=== PATIENT | female | born 1985 | race Caucasian/White ===

== ENCOUNTER 2022-07-12 00:44 | Emergency (ER) | payer OTHER ==
[2022-07-12] MEDS ORDERED: HYDROmorphone 1 MG/ML 1 ML SYRINGE IM STA (01:16)
--- NOTE | 2022-07-12 01:50 | ED ---
General Adult HPI - General Source: EMS Mode of arrival: EMS Limitations: no limitations <Rogers Ann - Last Filed: 07/12/22 05:05> <Solomon Szymanski - Last Filed: 07/12/22 06:40> - General Chief complaint: Back Pain/Injury Stated complaint: Back Pain Time Seen by Provider: 07/12/22 01:08 - History of Present Illness Initial comments: Patient is a 36-year-old female with no significant past medical history presenting with chief complaint of back pain. Patient states that she woke up out of her sleep at about 2300 with severe pain in the lower back. Patient states it stretches from hip to hip across the lower back. Patient denies any previous injury or trauma. She denies any drug use. Denies alcohol consumption. I'm told patient urinated her pants but was unaware. She is complaining of numbness to the bilateral lower extremities. She is still able to move the extremities. She denies any abdominal pain, nausea, vomiting, chest pain, difficulty breathing, headache, fevers, chills, dysuria, hematuria. Denies loss of bowel control. (Rogers Ann) - Related Data Allergies Allergy/AdvReac Type Severity Reaction Status Date / Time No Known Allergies Allergy Verified 07/12/22 00:58 Review of Systems ROS Other: All systems not noted in ROS Statement are negative. <Rogers Ann - Last Filed: 07/12/22 05:05> ROS Other: All systems not noted in ROS Statement are negative. <Solomon Szymanski - Last Filed: 07/12/22 06:40> ROS Statement: Those systems with pertinent positive or pertinent negative responses have been documented in the HPI. Past Medical History History of Any Multi-Drug Resistant Organisms: None Reported Past Surgical History: Tonsillectomy, Tubal Ligation Past Psychological History: No Psychological Hx Reported Smoking Status: Current every day smoker Past Alcohol Use History: None Reported Past Drug Use History: Marijuana <Rogers Ann - Last Filed: 07/12/22 05:05> General Exam Limitations: no limitations General appearance: alert, in distress (Complaining of severe pain) Head exam: Present: atraumatic, normocephalic, normal inspection Eye exam: Present: normal appearance, PERRL, EOMI. Absent: scleral icterus, conjunctival injection, periorbital swelling Neck exam: Present: normal inspection, full ROM Respiratory exam: Present: normal lung sounds bilaterally. Absent: respiratory distress, wheezes, rales, rhonchi, stridor Cardiovascular Exam: Present: regular rate, normal rhythm, normal heart sounds. Absent: systolic murmur, diastolic murmur, rubs, gallop, clicks GI/Abdominal exam: Present: soft. Absent: distended, tenderness, guarding, rebound, rigid Rectal exam: Present: decreased rectal tone Back exam: Present: normal inspection, tenderness Neurological exam: Present: alert, oriented X3, CN II-XII intact Psychiatric exam: Present: normal affect, normal mood Skin exam: Present: warm, dry, intact, normal color. Absent: rash <Rogers Ann - Last Filed: 07/12/22 05:05> Course <Rogers Ann - Last Filed: 07/12/22 05:05> Vital Signs 07/12/22 07/12/22 07/12/22 00:54 01:05 02:00 Temperature 98.8 F Pulse Rate 78 82 Respiratory 16 18 Rate Blood Pressure 190/98 148/79 177/99 O2 Sat by Pulse 98 100 Oximetry 07/12/22 07/12/22 07/12/22 03:00 04:00 05:00 Temperature 98.4 F Pulse Rate 78 92 80 Respiratory 18 20 18 Rate Blood Pressure 188/98 190/95 178/88 O2 Sat by Pulse 100 98 95 Oximetry - Reevaluation(s) Reevaluation #1: Spoke with Dr. Luong who recommended transfer 07/12/22 03:56 (Rogers Ann) Reevaluation #2: I am awaiting return call from [facility] for transfer. My attending Dr. Szymanski is aware. Patient signed out to attending for completion of transfer 07/12/22 05:05 (Rogers Ann) Medical Decision Making - Lab Data Result diagrams: 07/12/22 01:49 07/12/22 01:49 <Rogers Ann - Last Filed: 07/12/22 05:05> - Lab Data Result diagrams: 07/12/22 01:49 07/12/22 01:49 <Solomon Szymanski - Last Filed: 07/12/22 06:40> - Medical Decision Making Was pt. sent in by a medical professional or institution (NASIMA Silva, AIR CONDITIONING MANAGER, urgent care, hospital, or long-term...) When possible be specific @ -[No] Did you speak to anyone other than the patient for history (EMS, parent, family, police, friend...)? What history was obtained from this source @ -EMS Did you review nursing and triage notes (agree or disagree)? Why? @ -[I reviewed and agree with nursing and triage notes] Were old charts reviewed (outside hosp., previous admission, EMS record, old EKG, old radiological studies, urgent care reports/EKG's, long-term records)? Report findings @ -[No old charts were reviewed] Differential Diagnosis (chest pain, altered mental status, abdominal pain women, abdominal pain men, vaginal bleeding, weakness, fever, dyspnea, syncope, headache, dizziness, GI bleed, back pain, seizure, CVA, palpatations, mental health)? @ - [facility] Differential Back Pain: Strain, zoster, cauda equina syndrome, epidural abscess, vertebral osteomyelitis, discitis, fracture, subluxation, disc herniation, DJD, spinal stenosis, pyelonephritis, kidney stone this is not meant to be an all- inclusive list. EKG interpreted by me (3pts min.). @ -[As above] X-rays interpreted by me (1pt min.). @ -[None done] CT interpreted by me (1pt min.). @ -no, radiologist report is reviewed. There is a moderate posterior central L5-S1 lumbar disc herniation with impingement on the spinal canal. Negative computed tomography scan of the cervical and thoracic spine. Normal unenhanced head CT. U/S interpreted by me (1pt. min.). @ -[None done] What testing was considered but not performed or refused? (CT, X-rays, U/S, la bs)? Why? @ -[None] What meds were considered but not given or refused? Why? @ -[None] Did you discuss the management of the patient with other professionals (professionals i.e. NASIMA Silva, AIR CONDITIONING MANAGER, lab, RT, psych nurse, web content & social media manager, group fitness manager, teacher, transit police officer, counseling case manager)? Give summary @ -Case discussed with orthopedist natural resources extension educator Dr. Luong Was smoking cessation discussed for >3mins.? @ -[No] Was critical care preformed (if so, how long)? @ -[No] Were there social determinants of health that impacted care today? How? (Homelessness, low income, unemployed, alcoholism, drug addiction, transportation, low edu. Level, literacy, decrease access to med. care, fci, rehab)? @ -[No] Was there de-escalation of care discussed even if they declined (Discuss DNR or withdrawal of care, Hospice)? DNR status @ -[No] What co-morbidities impacted this encounter? (DM, HTN, Smoking, COPD, CAD, Cancer, CVA, ARF, Chemo, Hep., AIDS, mental health diagnosis, sleep apnea, morbid obesity)? @ -[None] Was patient admitted / discharged? Hospital course, mention meds given and route, prescriptions, significant lab abnormalities, going to OR and other pertinent info. @ -Patient is a 36-year-old female presenting with chief complaint of lower back pain. Patient was awakened out of her sleep with severe lower back pain, no trauma or injury. She lost control of her bladder and on physical examination she has decreased rectal tone. CT shows moderate posterior central L5-S1 lumbar disc herniation with impingement on the spinal canal. I discussed these findings with orthopedist natural resources extension educator Dr. Luong who advised transfer. I have requested [facility] be paged, assistant county attorney informs me that their phone lines are down and we are awaiting return call. Patient is signed out to my attending Dr. Szymanski for completion of transfer. Undiagnosed new problem with uncertain prognosis? @ -[No] Drug Therapy requiring intensive monitoring for toxicity (Heparin, Nitro, Insulin, Cardizem)? @ -[No] Were any procedures done? @ -[No] Diagnosis/symptom? @ -Cauda equina Acute, or Chronic, or Acute on Chronic? @ -Acute Uncomplicated (without systemic symptoms) or Complicated (systemic symptoms)? @ -Complicated Side effects of treatment? @ -[No] Exacerbation, Progression, or Severe Exacerbation? @ -[No] Poses a threat to life or bodily function? How? (Chest pain, [place], [place], pneumonia, PE, COPD, DKA, ARF, appy, cholecystitis, CVA, Diverticulitis, Homicidal, Suicidal, threat to staff... and all critical care pts) @ -Yes (Rogers Ann) Patient was signed out to me pending transfer. Patient in brief has what appears to be atraumatic cauda equina syndrome. MRI was not performed but CT imaging does show central L5-S1 lumbar disc herniation with impingement on the spinal canal as well as having symptoms of low back pain, decreased rectal tone, urinary incontinence, urinary retention, saddle anesthesias, lower extremity weakness. [facility] The transfer center had to physically walk themselves down to the emergency department to connect us to the emergency department provider which did take over an hour. [facility] did call back, and accepted the transfer. Accepting physician is Dr. Lr. Patient is transferred in serious condition. She will require MRI. Patient was administered 10 mg of IV Decadron, additional IV Dilaudid for pain, and eagle catheter was placed as the patient is approximately 500 mL of urine in her bladder. Vital signs remained within acceptable limits. She'll be transferred via EMS in serious condition. (Solomon Szymanski) - Lab Data Lab Results 07/12/22 07/12/22 07/12/22 Range/Units 01:49 01:49 05:00 WBC 18.0 H (3.8-10.6) k/uL RBC 5.09 (3.80-5.40) m/uL Hgb 14.1 (11.4-16.0) gm/dL Hct 43.4 (34.0-46.0) % MCV 85.1 (80.0-100.0) fL MCH 27.7 (25.0-35.0) pg MCHC 32.6 (31.0-37.0) g/dL RDW 15.1 (11.5-15.5) % Plt Count 307 (150-450) k/uL MPV 7.9 Neutrophils % 73 % Lymphocytes % 21 % Monocytes % 3 % Eosinophils % 1 % Basophils % 1 % Neutrophils # 13.2 H (1.3-7.7) k/uL Lymphocytes # 3.8 (1.0-4.8) k/uL Monocytes # 0.6 (0-1.0) k/uL Eosinophils # 0.3 (0-0.7) k/uL Basophils # 0.1 (0-0.2) k/uL ESR 11 (0-20) mm/hr Sodium 137 (137-145) mmol/L Potassium 3.9 (3.5-5.1) mmol/L Chloride 106 (98-107) mmol/L Carbon Dioxide 24 (22-30) mmol/L Anion Gap 7 mmol/L BUN 21 H (7-17) mg/dL Creatinine 0.88 (0.52-1.04) mg/dL Est GFR (CKD-EPI)AfAm >90 (>60 ml/min/1.73 sqM) Est GFR (CKD-EPI)NonAf 85 (>60 ml/min/1.73 sqM) Glucose 214 H (74-99) mg/dL Calcium 9.0 (8.4-10.2) mg/dL Total Bilirubin 0.3 (0.2-1.3) mg/dL AST 20 (14-36) U/L ALT 19 (4-34) U/L Alkaline Phosphatase 88 (38-126) U/L C-Reactive Protein 0.7 (<1.0) mg/dL Total Protein 7.0 (6.3-8.2) g/dL Albumin 4.0 (3.5-5.0) g/dL Urine Color Colorless Urine Appearance Clear (Clear) Urine pH 6.0 (5.0-8.0) Ur Specific [place] 1.039 H (1.001-1.035) Urine Protein Negative (Negative) Urine Glucose (UA) 1+ H (Negative) Urine Ketones Negative (Negative) Urine Blood Trace H (Negative) Urine Nitrite Negative (Negative) Urine Bilirubin Negative (Negative) Urine Urobilinogen <2.0 (<2.0) mg/dL Ur Leukocyte Esterase Negative (Negative) Urine RBC 1 (0-5) /hpf Urine WBC 4 (0-5) /hpf Ur Squamous Epith Cells <1 (0-4) /hpf Urine HCG, Qual (Not Detectd) 07/12/22 Range/Units 05:00 WBC (3.8-10.6) k/uL RBC (3.80-5.40) m/uL Hgb (11.4-16.0) gm/dL Hct (34.0-46.0) % MCV (80.0-100.0) fL MCH (25.0-35.0) pg MCHC (31.0-37.0) g/dL RDW (11.5-15.5) % Plt Count (150-450) k/uL MPV Neutrophils % % Lymphocytes % % Monocytes % % Eosinophils % % Basophils % % Neutrophils # (1.3-7.7) k/uL Lymphocytes # (1.0-4.8) k/uL Monocytes # (0-1.0) k/uL Eosinophils # (0-0.7) k/uL Basophils # (0-0.2) k/uL ESR (0-20) mm/hr Sodium (137-145) mmol/L Potassium (3.5-5.1) mmol/L Chloride (98-107) mmol/L Carbon Dioxide (22-30) mmol/L Anion Gap mmol/L BUN (7-17) mg/dL Creatinine (0.52-1.04) mg/dL Est GFR (CKD-EPI)AfAm (>60 ml/min/1.73 sqM) Est GFR (CKD-EPI)NonAf (>60 ml/min/1.73 sqM) Glucose (74-99) mg/dL Calcium (8.4-10.2) mg/dL Total Bilirubin (0.2-1.3) mg/dL AST (14-36) U/L ALT (4-34) U/L Alkaline Phosphatase (38-126) U/L C-Reactive Protein (<1.0) mg/dL Total Protein (6.3-8.2) g/dL Albumin (3.5-5.0) g/dL Urine Color Urine Appearance (Clear) Urine pH (5.0-8.0) Ur Specific [place] (1.001-1.035) Urine Protein (Negative) Urine Glucose (UA) (Negative) Urine Ketones (Negative) Urine Blood (Negative) Urine Nitrite (Negative) Urine Bilirubin (Negative) Urine Urobilinogen (<2.0) mg/dL Ur Leukocyte Esterase (Negative) Urine RBC (0-5) /hpf Urine WBC (0-5) /hpf Ur Squamous Epith Cells (0-4) /hpf Urine HCG, Qual Not Detected (Not Detectd) Disposition Time of Disposition: 03:56 - Out of Hospital Transfer - Req. Specs Out of Hospital Transfer - Requested Specifics: Other Emergency Center <Rogers Ann - Last Filed: 07/12/22 05:05> <Solomon Szymanski - Last Filed: 07/12/22 06:40> Clinical Impression: Cauda equina syndrome, Disc herniation, Urinary retention Disposition: OTHER INSTITUTION NOT DEFINED Condition: Serious Referrals: None,Stated [Primary Care Provider] - 1-2 days
[2022-07-12 01:59] LABS: Basophils # (A) 0.1 k/uL (0-0.2); Basophils % (A) 1 %; Eosinophils # (A) 0.3 k/uL (0-0.7); Eosinophils % (A) 1 %; HCT 43.4 % (34.0-46.0); HGB 14.1 gm/dL (11.4-16.0); Lymphocytes # (A) 3.8 k/uL (1.0-4.8); Lymphocytes % (A) 21 %; MCH 27.7 pg (25.0-35.0); MCHC 32.6 g/dL (31.0-37.0); MCV 85.1 fL (80.0-100.0); Mean Platelet Volume 7.9; Monocytes # (A) 0.6 k/uL (0-1.0); Monocytes % (A) 3 %; Neutrophils # (A) 13.2 k/uL (1.3-7.7); Neutrophils % (A) 73 %; Platelet Count 307 k/uL (150-450); RBC 5.09 m/uL (3.80-5.40); RDW 15.1 % (11.5-15.5)
--- NOTE | 2022-07-12 02:19 | CT ---
EXAMINATION TYPE: CT brain wo con DATE OF EXAM: 07/12/2022 COMPARISON: None HISTORY: Left hip and lower back pain. Numbness in left leg. CT DLP: 1098.4 mGycm Automated exposure control for dose reduction was used. Images obtained of the brain without contrast. Ventricles and sulci appear normal. There is no mass effect or midline shift. No sign of intracranial hemorrhage. Calvarium is intact. No evidence of cerebral edema. IMPRESSION: Normal unenhanced head CT scan.
[2022-07-12 02:25] LABS: ALT 19 U/L (4-34); AST 20 U/L (14-36); African American GFR (CKD) >90 (>60 ml/min/1.73 sqM); Alkaline Phosphatase 88 U/L (38-126); Anion Gap 7 mmol/L; Blood Urea Nitrogen 21 mg/dL (7-17); C Reactive Protein 0.7 mg/dL (<1.0); Carbon Dioxide 24 mmol/L (22-30); Chloride 106 mmol/L (98-107); Glucose 214 mg/dL (74-99); Non-African American GFR(CKD) 85 (>60 ml/min/1.73 sqM); Potassium 3.9 mmol/L (3.5-5.1); Sodium 137 mmol/L (137-145); Total Bilirubin 0.3 mg/dL (0.2-1.3)
[2022-07-12 02:47] VITALS: RESP 18
[2022-07-12 03:00] LABS: Erythrocyte Sedimentation Rate 11 mm/hr (0-20)
--- NOTE | 2022-07-12 03:27 | CT ---
EXAMINATION TYPE: CT CervThorLumbar spine w con DATE OF EXAM: 07/12/2022 COMPARISON: HISTORY: Left hip and lower back pain. Numbness in left leg. CT DLP: 2776.8 mGycm Automated exposure control for dose reduction was used. CONTRAST: Performed with IV Contrast, patient injected with 100ML mL of Isovue 300. Images obtained from the level of the skull base to the S2 vertebra with no contrast. The cervical thoracic and lumbar vertebrae have normal spacing and alignment. Posterior elements are intact. No compression fracture. The skull base is intact. There is normal aeration of the mastoid si nuses. Posterior ribs appear intact. There is no thoracic paraspinal mass. Facet joints appear normal. No lumbar paraspinal mass. No evidence of lumbar spinal stenosis. Sacroil iac joints are intact. There is a moderate posterior central L5-S1 lumbar disc herniation. No evidenc e of thoracic spinal stenosis. IMPRESSION: There is a moderate posterior central L5-S1 lumbar disc herniation with impingement on the spinal can al. Negative CT scan of the cervical and thoracic spine.
[2022-07-12] MEDS ORDERED: HYDROmorphone 1 MG/ML 1 ML SYRINGE IVP STA ×2 (03:54→06:28)
[2022-07-12] MEDS ORDERED: DEXAMETHASONE SOD PHOSPHATE 10 MG/ML 1 ML VIAL IVP STA (05:06)
[2022-07-12] MEDS ORDERED: HYDROmorphone 1 MG/ML 1 ML SYRINGE IVP PRN (05:14)
[2022-07-12 05:23] LABS: Appearance,Urine Clear (Clear); Bilirubin,Urine Negative (Negative); Blood,Urine Trace (Negative); Color,Urine Colorless; Glucose,Urine (UA) 1+ (Negative); Ketones,Urine Negative (Negative); Leukocyte Esterase,Urine Negative (Negative); Nitrite,Urine Negative (Negative); Protein,Urine Negative (Negative); RBC,Urine 1 /hpf (0-5); Specific Gravity,Urine 1.039 (1.001-1.035); Squamous Epithelial Cell,Urine <1 /hpf (0-4); Urobilinogen,Urine <2.0 mg/dL (<2.0); WBC,Urine 4 /hpf (0-5)
[2022-07-12 05:46] VITALS: BP 178/88; PULSE 80; TEMP 98.4
== END 2022-07-12 06:31 | disposition other institution (70) ==
LOC: EC 00:44
DX: G83.4 Cauda equina syndrome (principal); M51.26 Other intervertebral disc displacement, lumbar region; F17.200 Nicotine dependence, unspecified, uncomplicated; F12.90 Cannabis use, unspecified, uncomplicated
CPT/HCPCS: 36415; 80053; 85652; 85025; 86140; 81001; 81025; 72129; 72126; 72132; 70450; 99285; 96374; 96375; 96376 ×2; 96372; J1100; J1170; Q9967

== ENCOUNTER 2022-09-05 14:07 | Emergency (ER) | payer OTHER ==
[2022-09-05] MEDS ORDERED: ONDANSETRON 4 MG/2 ML VIAL IVP STA (14:37)
[2022-09-05] MEDS ORDERED: SODIUM CHLORIDE 0.9% 1,000 ML IV ONE (14:37)
[2022-09-05] MEDS ORDERED: HYDROmorphone 1 MG/ML 1 ML SYRINGE IVP STA ×2 (14:37→18:49)
[2022-09-05] MEDS ORDERED: ACETAMINOPHEN TAB 325 MG TAB PO STA (14:38)
[2022-09-05] MEDS ORDERED: IBUPROFEN 600 MG TAB PO STA (14:38)
[2022-09-05 15:35] LABS: ALT 35 U/L (4-34); AST 33 U/L (14-36); African American GFR (CKD) >90 (>60 ml/min/1.73 sqM); Alkaline Phosphatase 285 U/L (38-126); Anion Gap 9 mmol/L; Blood Urea Nitrogen 12 mg/dL (7-17); Calcium 8.4 mg/dL (8.4-10.2); Carbon Dioxide 28 mmol/L (22-30); Chloride 91 mmol/L (98-107); Glucose 263 mg/dL (74-99); Non-African American GFR(CKD) >90 (>60 ml/min/1.73 sqM); Potassium 4.3 mmol/L (3.5-5.1); Sodium 128 mmol/L (137-145); Total Bilirubin 0.5 mg/dL (0.2-1.3)
[2022-09-05 15:45] LABS: Anisocytosis Slight; HCT 30.8 % (34.0-46.0); MCH 28.9 pg (25.0-35.0); MCHC 32.6 g/dL (31.0-37.0); MCV 88.7 fL (80.0-100.0); Mean Platelet Volume 8.2; Platelet Count 450 k/uL (150-450); RBC 3.48 m/uL (3.80-5.40); RDW 18.5 % (11.5-15.5); WBC 23.4 k/uL (3.8-10.6)
--- NOTE | 2022-09-05 15:49 | ED ---
General Adult HPI - General Chief complaint: Extremity Injury, Lower Stated complaint: rt leg wound Time Seen by Provider: 09/05/22 14:21 Source: patient, RN notes reviewed Mode of arrival: wheelchair Limitations: no limitations - History of Present Illness Initial comments: 36-year-old female with no significant past medical history presents to the emergency department the chief complaint of wound problem. Patient reports that she had an [id number] amputation performed at [facility] approximately around 07/19/2022. She was at her weekly wound care appointment at this facility where they noticed purulent discharge and redness to the site. The patient is complaining of increasing pain. Patient is reporting fever, chills. She has not taken anything for his symptoms. Patient is tearful during the history. Denies any chest pain, shortness of breath, dyspnea, cough. Denies any recent sick contacts. - Related Data Home Medications Medication Instructions Recorded Confirmed Acetaminophen [Tylenol] 975 mg PO Q8H 08/03/22 08/29/22 Docusate Sodium [Dok] 100 mg PO BID PRN 08/03/22 08/29/22 Rivaroxaban [Xarelto] 15 mg PO BID-W/MEALS 08/03/22 08/29/22 Sertraline [Zoloft] 50 mg PO DAILY 08/03/22 08/29/22 methocarbamoL [Methocarbamol] 750 mg PO QID 08/03/22 08/29/22 Previous Rx's Medication Instructions Recorded Atorvastatin [Lipitor] 80 mg PO DAILY 90 Days #90 tab 08/13/22 Gabapentin [Neurontin] 800 mg PO QID 15 Days #60 cap 08/13/22 Lidocaine 5% Patch [Lidoderm 5% 1 patch TOPICAL DAILY 15 Days #15 08/13/22 Patch] patch Morphine Sulfate ER [Ms Contin] 15 mg PO Q12HR 15 Days #30 tab 08/13/22 oxyCODONE-APAP 10-325MG [Percocet 1 each PO Q12HR PRN 30 Days #60 tab 08/29/22 10-325 mg] oxyCODONE-APAP 10-325MG [Percocet 1 tab PO Q12HR PRN 30 Days #60 tab 08/29/22 10-325 mg] Allergies Allergy/AdvReac Type Severity Reaction Status Date / Time No Known Allergies Allergy Verified 08/29/22 11:31 Review of Systems ROS Statement: Those systems with pertinent positive or pertinent negative responses have been documented in the HPI. ROS Other: All systems not noted in ROS Statement are negative. Past Medical History Past Medical History: Deep Vein Thrombosis (DVT) History of Any Multi-Drug Resistant Organisms: None Reported Past Surgical History: Tonsillectomy, Tubal Ligation Additional Past Surgical History / Comment(s): Right AKA Past Anesthesia/Blood Transfusion Reactions: No Reported Reaction Smoking Status: Current every day smoker - Past Family History Mother Family Medical History: No Reported History Father Additional Family Medical History / Comment(s): heart disease, Parkinson's disease. General Exam Limitations: no limitations General appearance: alert, in no apparent distress Head exam: Present: atraumatic, normocephalic, normal inspection Eye exam: Present: normal appearance, PERRL, EOMI. Absent: scleral icterus, conjunctival injection, periorbital swelling ENT exam: Present: normal exam, mucous membranes moist Neck exam: Present: normal inspection. Absent: tenderness, meningismus, lymphadenopathy Respiratory exam: Present: normal lung sounds bilaterally. Absent: respiratory distress, wheezes, rales, rhonchi, stridor Cardiovascular Exam: Present: regular rate, normal rhythm, normal heart sounds. Absent: systolic murmur, diastolic murmur, rubs, gallop, clicks GI/Abdominal exam: Present: soft, normal bowel sounds. Absent: distended, tenderness, guarding, rebound, rigid Extremities exam: Present: normal inspection, full ROM, normal capillary refill. Absent: tenderness, pedal edema, joint swelling, calf tenderness Right Hip exam: Present: normal inspection, full ROM. Absent: tenderness Upper Leg exam: Present: normal inspection, full ROM, laceration (AKA to R extremity, with erythema and purulent discharge to the site. ) Back exam: Present: normal inspection Neurological exam: Present: alert, oriented X3, CN II-XII intact Psychiatric exam: Present: normal affect, normal mood Skin exam: Present: warm, dry, intact, normal color. Absent: rash Course Vital Signs 09/05/22 09/05/22 09/05/22 14:09 15:31 16:19 Temperature 100.9 F H Pulse Rate 106 H 80 Respiratory 20 17 18 Rate Blood Pressure 116/55 87/46 103/54 O2 Sat by Pulse 94 L 90 L 99 Oximetry - Reevaluation(s) Reevaluation #1: 09/05/22 17:[address] Hoyos who agrees and accepts the patient for ER to ER transfer. EKG Findings - EKG Comments: EKG Findings:: I interpreted the following EKG performed at 15:42. Rate 79 bpm and normal sinus rhythm. ME interval 128, QRS duration 86, QT/QTc 392/427 Medical Decision Making - Medical Decision Making Was pt. sent in by a medical professional or institution (, NASIMA, TRANSITION SPECIALIST, urgent care, hospital, or care home...) When possible be specific @ -[No] Did you speak to anyone other than the patient for history (EMS, parent, family, police, friend...)? What history was obtained from this source @ -[No] Did you review nursing and triage notes (agree or disagree)? Why? @ -[I reviewed and agree with nursing and triage notes] Were old charts reviewed (outside hosp., previous admission, EMS record, old EKG, old radiological studies, urgent care reports/EKG's, care home records)? Report findings @ -[No old charts were reviewed] Differential Diagnosis (chest pain, altered mental status, abdominal pain women, abdominal pain men, vaginal bleeding, weakness, fever, dyspnea, syncope, headache, dizziness, GI bleed, back pain, seizure, CVA, palpatations, mental health, musculoskeletal)? @ -[not applicable] EKG interpreted by me (3pts min.). @ -[As above] X-rays interpreted by me (1pt min.). @ -[None done] CT interpreted by me (1pt min.). @ -[None done] U/S interpreted by me (1pt. min.). @ -[None done] What testing was considered but not performed or refused? (CT, X-rays, U/S, labs)? Why? @ -[None] What meds were considered but not given or refused? Why? @ -[None] Did you discuss the management of the patient with other professionals (professionals i.e. , NASIMA, TRANSITION SPECIALIST, lab, RT, psych nurse, aids social worker, global ceo, teacher, v/stol landing signal officer, case mgr)? Give summary @ -[No] Was smoking cessation discussed for >3mins.? @ -[No] Was critical care preformed (if so, how long)? @ -[No] Were there social determinants of health that impacted care today? How? (Homelessness, low income, unemployed, alcoholism, drug addiction, transportation, low edu. Level, literacy, decrease access to med. care, [facility], rehab)? @ -[No] Was there de-escalation of care discussed even if they declined (Discuss DNR or withdrawal of care, Hospice)? DNR status @ -[No] What co-morbidities impacted this encounter? (DM, HTN, Smoking, COPD, CAD, Cancer, CVA, ARF, Chemo, Hep., AIDS, mental health diagnosis, sleep apnea, morbid obesity)? @ -[None] Was patient admitted / discharged? Hospital course, mention meds given and route, prescriptions, significant lab abnormalities, going to OR and other pertinent info. @ -Transfer to [facility]. This is a 36-year-old female who presents to the emergency department with wound problem. Patient had a thorough history and physical exam which reveals an obese, febrile female who is in mild distress. Lungs clear to auscultation bilaterally abdomen is soft and nontender. There is a wrcnx-fzp-buar amputation to the right lower extremity with redness and tenderness at the incision site. Bandages had thick purulent discharge upon removal. Patient was given 2 L IV fluids, Tylenol, dilaudid, Zofran for pain management with mild symptomatic relief. Patient was started on IV vancomycin and Rocephin. Patient had lab work and imaging performed which revealed: X-ray of right femur reveals suspect soft tissue ulcers at the amputation stump osteomatitis at the mid femoral shaft of the knee along the subtle cortical lucency concerning for early osteomyelitis there is no soft tissue air or evidence of necrotizing fasciitis at this time Labs remarkable for WBCs 23.4, hemoglobin 10.0, BMP unremarkable, CRP 22.0, lactic acid 1.8 Blood cultures pending. ESR pending. The results in detail with the patient who verbalized understanding and all questions were addressed. Case was discussed with Dr. Hoyos, ED attending at [facility] who agrees and accepts the patient for ER to ER transfer. Pat ient will be transferred in stable condition. Case discussed with Dr. Cano, ECP who agrees with plan of care Undiagnosed new problem with uncertain prognosis? @ -[No] Drug Therapy requiring intensive monitoring for toxicity (Heparin, Nitro, I nsulin, Cardizem)? @ -[No] Were any procedures done? @ -[No] Diagnosis/symptom? @ -Wound problem -Sepsis - Hx of AKA Acute, or Chronic, or Acute on Chronic? @ -acute Uncomplicated (without systemic symptoms) or Complicated (systemic symptoms)? @ -complicated, fever Side effects of treatment? @ -[No] Exacerbation, Progression, or Severe Exacerbation? @ -[No] Poses a threat to life or bodily function? How? (Chest pain, USA, NC, pneumonia, PE, COPD, DKA, ARF, appy, cholecystitis, CVA, Diverticulitis, Homicidal, Suicidal, threat to staff... and all critical care pts) @ -high likelihood, including - Lab Data Result diagrams: 09/05/22 14:53 09/05/22 14:53 Lab Results 09/05/22 09/05/22 09/05/22 Range/Units 14:53 14:53 14:53 WBC 23.4 H (3.8-10.6) k/uL RBC 3.48 L (3.80-5.40) m/uL Hgb 10.0 L (11.4-16.0) gm/dL Hct 30.8 L (34.0-46.0) % MCV 88.7 (80.0-100.0) fL MCH 28.9 (25.0-35.0) pg MCHC 32.6 (31.0-37.0) g/dL RDW 18.5 H (11.5-15.5) % Plt Count 450 (150-450) k/uL MPV 8.2 Neutrophils % (Manual) 74 % Band Neuts % (Manual) 5 % Lymphocytes % (Manual) 17 % Monocytes % (Manual) 4 % Neutrophils # (Manual) 18.40 H (1.3-7.7) k/uL Lymphocytes # (Manual) 3.98 (1.0-4.8) k/uL Monocytes # (Manual) 0.94 (0-1.0) k/uL Nucleated RBCs 0 (0-0) /100 WBC Manual Slide Review Performed RBC Morphology Normal Anisocytosis Slight Sodium 128 L (137-145) mmol/L Potassium 4.3 (3.5-5.1) mmol/L Chloride 91 L (98-107) mmol/L Carbon Dioxide 28 (22-30) mmol/L Anion Gap 9 mmol/L BUN 12 (7-17) mg/dL Creatinine 0.65 (0.52-1.04) mg/dL Est GFR (CKD-EPI)AfAm >90 (>60 ml/min/1.73 sqM) Est GFR (CKD-EPI)NonAf >90 (>60 ml/min/1.73 sqM) Glucose 263 H (74-99) mg/dL Plasma Lactic Acid Charly 1.8 (0.7-2.0) mmol/L Calcium 8.4 (8.4-10.2) mg/dL Total Bilirubin 0.5 (0.2-1.3) mg/dL AST 33 (14-36) U/L ALT 35 H (4-34) U/L Alkaline Phosphatase 285 H (38-126) U/L C-Reactive Protein 22.0 H (<1.0) mg/dL Total Protein 6.0 L (6.3-8.2) g/dL Albumin 3.0 L (3.5-5.0) g/dL Disposition Clinical Impression: Sepsis, AKA stump complication Disposition: HOME SELF-CARE Condition: Fair Is patient prescribed a controlled substance at d/c from ED?: No Referrals: Tio Peters MD [Primary Care Provider] - 1-2 days Time of Disposition: 17:03 - Out of Hospital Transfer - Req. Specs Out of Hospital Transfer - Requested Specifics: Other Emergency Center ([facility])
[2022-09-05] MEDS ORDERED: VANCOMYCIN 1,000 MG in SODIUM CHLORIDE 0.9% 250 ML IVPB STA (16:16)
--- NOTE | 2022-09-05 16:19 | XR ---
EXAMINATION TYPE: XR femur RT DATE OF EXAM: 09/05/2022 COMPARISON: NONE HISTORY: 36-year-old female rule out necrotizing fasciitis. Pain and infection at amputation site. Am putation performed last month. TECHNIQUE: 2 views FINDINGS: There is mild degenerative change of the right hip. 4 skin dick are present at the level of the hip. There is a mid femoral shaft amputation noted. The soft tissue stump appears irregular possibly refle cting ulceration. There is periostitis at the osteotomy and cerebral cortical osteolysis both at the osteotomy margin and along the lateral cortex. No obvious dissecting soft tissue air is seen. IMPRESSION: 1. Suspect soft tissue ulcers at the amputation stump. 2. Periostitis at the mid femoral shaft osteotomy along with subtle cortical lucency concerning for e katie osteomyelitis. 3. Otherwise, no soft tissue air to clearly indicate a radiographic diagnosis of necrotizing fasciiti s.
[2022-09-05] MEDS ORDERED: VANCOMYCIN IV PER PHARMACY 1 EACH MISC MISCELLANE PRN (16:21)
[2022-09-05 16:24] LABS: Band Neutrophils % 5 %; Lymphocytes # (M) 3.98 k/uL (1.0-4.8); Monocytes # (M) 0.94 k/uL (0-1.0); Neutrophils % (M) 74 %; Nucleated Red Blood Cells 0 /100 WBC (0-0); RBC Morphology Normal; Total Cells Counted 100
[2022-09-05] MEDS ORDERED: VANCOMYCIN 1,500 MG in SODIUM CHLORIDE 0.9% 500 ML 500 ML IVPB ONE (16:30)
[2022-09-05 17:23] VITALS: RESP 19; TEMP 98
[2022-09-05 18:46] VITALS: BP 104/52; PULSE 77
== END 2022-09-05 19:14 | disposition home or self-care (01) ==
LOC: EC 14:07
DX: A41.9 Sepsis, unspecified organism (principal); F17.200 Nicotine dependence, unspecified, uncomplicated; Z89.611 Acquired absence of right leg above knee
CPT/HCPCS: 36415; 80053; 85652; 83605; 85025; 86140; 87040; 73552; 99284; 96365; 96367; 96366; 96376; 96375 ×2; 96361; J3370; J2405; J0696; J1170

== ENCOUNTER → 2022-10-24 | Outpatient (CLI) | payer OTHER ==
--- NOTE | 2022-10-24 14:37 | P.PAINPG ---
PQRS Measure Charge Sheet Comment: A wheelchair bound R NAKITA 36 yr old female w mother at side with a history of severe and chronic LBP secondary to lumbar DDD and spondylosis with facet arthropathy without myelopathy presents today for medication refills. Pain level is provoked at 5/10 in intensity, constant, localized in the lower lumbar s pine, stabbing in character w shooting towards the hips and R AKA. Pain is provoked by weight bearing activity. Pain is alleviated with medications, Lidoderm patches which are ineffective, injections, chiropractic treatments semiweekly until May 2022, use of a wheelchair family 20 assistance, use a heating pad, repositioning and rest. Interventional pain procedures completed include LESI Patient is currently on Percocet 10/325mg #60 Patient denies any side effects of the medication(s), denies excessive drowsiness or sleepiness, denies suicidal ideation and reports that the current pain medication is helping to control the pain and improve activities of daily living. Patient denies any motor or sensory deficits. Patient denies any fever or night sweats, denies any change in the bowel movements or urination. Physical Examination: -Constitutional: Cooperative. Not in acute distress . - Neurologic: Cranial nerve II to XII intact. No focal neurological deficits. - Psychatric: Alert & oriented x 3. Matching mood & appropriate affect. Judgment and insight intact. - Musculoskeletal: Cervical spine: Muscle bulk/ tone/ strength in the bilateral upper extremities normal Vertebral body tenderness to palpation over Spurling test positive Distraction test positive Facet loading test positive TTP Thoracic spine Muscle bulk / tone/ strength in the bilateral paraspinal muscles normal Vertebral body tender to palpation over Facet loading test positive TTP Lumbar spine: Motor bulk/ tone/ strength lower extremities , thigh and legs : 5/5 Deep tendon reflexes : Normal Knee Jerk. Normal Ankle Jerk . Vertebral body tenderness to palpation over L5 Lumbar Facet Loading Test positive Straight Leg Raise: positive at 30 degrees right side> left side Gaenslen's Test positive Sacral spine : Severe tenderness over the Sacroiliac joint: right side / left side Range of motion: Flexion of the lumbar spine <60 degrees Range of motion: Extension of the lumbar spine <20 degrees Gaenslen's Test positive right side / left side Thomas test: positive right side / left side Thigh Thrust Test positive right side / left side Sacral Thrust Test positive right side / left side Assessment and plan: Chronic LBP secondary to lumbar DDD, spondylosis with facet arthropathy without myelopathy Chronic and current use of high-risk medication (Opioids). The patient was counseled about risk of opioid use, psychological risk associated with opioids and was orally counseled to not overuse , divert or sell medications. Pt is to store medication in a safe location. The patient is counseled against driving while using narcotic medications and also not to use alcohol or any illicit recreational drugs. Patient verbalized understanding that the lack of compliance will result in failure to renew narcotic prescription(s) as well as possible discharge from the clinic Diagnoses, prognosis and treatment options including but not limited to physical therapy, surgical interventions, interventional therapies and medication management including narcotics and adjuvant medication were discussed. All patient questions answered MAPS reviewed and it was appropriate. Prescription refill for Percocet 10/325mg #60 w 1 RF. I have spent less than 30 minutes on patient care today. Dr Melgar was available by phone for the evaluation of this patient. The time was used to review the medical records including relevant urine studies and Prescription history (MAPs), review of the available imaging, evaluation and examination of the patient, coordination of care with the medical staff and if applicable referring physicians, as well as creation of the medical record Home Medications: Ambulatory Orders Acetaminophen [Tylenol] 975 mg PO Q8H 08/03/22 Docusate Sodium [Dok] 100 mg PO BID PRN 08/03/22 Rivaroxaban [Xarelto] 15 mg PO BID-W/MEALS 08/03/22 Sertraline [Zoloft] 50 mg PO DAILY 08/03/22 methocarbamoL [Methocarbamol] 750 mg PO QID 08/03/22 Atorvastatin [Lipitor] 80 mg PO DAILY 90 Days #90 tab 08/13/22 Gabapentin [Neurontin] 800 mg PO QID 15 Days #60 cap 08/13/22 Lidocaine 5% Patch [Lidoderm 5% Patch] 1 patch TOPICAL DAILY 15 Days #15 patch 08/13/22 Morphine Sulfate ER [Ms Contin] 15 mg PO Q12HR 15 Days #30 tab 08/13/22 oxyCODONE-APAP 10-325MG [Percocet 10-325 mg] 1 each PO Q12HR PRN 30 Days #60 tab 10/24/22 oxyCODONE-APAP 10-325MG [Percocet 10-325 mg] 1 tab PO Q12HR PRN 30 Days #60 tab 10/24/22 Controlled Substance Measures - Controlled Substance Measures Is patient prescribed a controlled substance at discharge?: Yes When asked, does pt state using other controlled substances?: Yes If prescribed controlled substance>3 days was MAPS reviewed?: Yes
[2022-10-24 15:05] VITALS: BP 116/81; PULSE 84; RESP 18; TEMP 98.1
== END ==
LOC: PNWHC3 13:19
PROVIDERS: ATTEND Specialist
DX: M51.36 Other intervertebral disc degeneration, lumbar region (principal); M47.816 Spondylosis without myelopathy or radiculopathy, lumbar region; G89.29 Other chronic pain; Z79.891 Long term (current) use of opiate analgesic
CPT/HCPCS: 99211

== ENCOUNTER 2022-11-01 12:47 | Day surgery (SDC) | payer OTHER ==
[2022-10-30 17:53] VITALS: BMI 43.0
[2022-11-01 13:34] VITALS: RESP 16; TEMP 96.6
[2022-11-01] MEDS ORDERED: LACTATED RINGERS 1,000 ML IV ONE (13:38)
[2022-11-01] MEDS ORDERED: MIDAZOLAM 2 MG/2 ML VIAL IVP ONE (13:41)
[2022-11-01 13:42] LABS: Glucose,Whole Blood 145 mg/dL (70-110)
[2022-11-01] MEDS ORDERED: IOPAMIDOL M200 10 ML VIAL ONE (13:50)
[2022-11-01] MEDS ORDERED: methylPREDNISolone ACETATE 40 MG/ML 1 ML VIAL ONE (13:50)
[2022-11-01] MEDS ORDERED: fentaNYL (PF) 50 MCG/ML 2 ML AMP ONE (13:50)
[2022-11-01] MEDS ORDERED: LACTATED RINGERS 1,000 ML IV SCH (14:00)
--- NOTE | 2022-11-01 14:04 | P.PCN ---
Date of Procedure: 11/01/22 Description of Procedure: Procedure: 1. L5-S1 Epidural steroid injection under fluoroscopic guidance 2. Lumbar epidurogram PREOPERATIVE DIAGNOSIS: Lumbar degenerative disc disease, and Lumbar radiculopathy. POSTOPERATIVE DIAGNOSIS: Lumbar degenerative disc disease, and Lumbar radi culopathy. SURGEON: Cristopher Lemus ANESTHESIA: Local with 1% lidocaine, and IV sedation: Fentanyl 100 g. Sedation supervision start time: 1355 Sedation supervision ended time 1401 EBL: None. Specimen removed: None Fluoroscopic image: saved to electronic medical records PROCEDURE INDICATION: The patient had history of Lumbar degenerative disc disease and Lumbar radiculopathy. Failed to conservative therapy. Presented for epidural steroid injection. PROCEDURE DESCRIPTION: The patient was seen and identified in the preoperative area. Risks, benefits, complications, and alternatives were discussed with the patient. The patient agreed to proceed with the procedure and signed the consent. IV was started, and vital signs were stable. Patient was taken to the procedure area, and time out was completed. The patient was placed in the prone position on procedure table and a pillow was placed under the abdomen to reduce lumbar lordosis. The lumbosacral area was prepped and draped in the usual sterile fashion. Critical pause was taken. Vital signs were closely monitored during the procedure. Using anterior-posterior fluoroscopy, the L5-S1 interlaminar space was identified, and skin and deeper tissues were localized with 1% lidocaine. Using anterior-posterior fluoroscopy, lateral fluoroscopy, and [id number] technique, a 20 gauge 3.5 Tuohy epidural needle entered the epidural space. After negative aspiration of CSF and blood with no paresthesias, 2 ml of [id number] contrast dye was injected and an excellent epidurogram was seen. Again after negative aspiration of CSF and blood with no paresthesias, 8 mL of block solution was injected into the epidural space. Block solution contained 40 mg of Depo-Medrol, and 7 mL of preservative-free normal saline. Needle was withdrawn intact, skin was cleansed, and bandages were applied. COMPLICATIONS: None. DISPOSITION / PLANS: The patient was placed in a supine position and transferred to the recovery area in a stable condition for observation. Patient was discharged from the recovery room after meeting discharge criteria. Home discharge instructions given to the patient by the staff. The patient was reexamined prior to discharge. The patient will schedule a follow up in the clinic in 4 weeks.
[2022-11-01] MEDS ORDERED: IV FLUID CONTINUATION 1,000 ML IV ONE (14:08)
[2022-11-01 14:21] LABS: Glucose,Whole Blood 118 mg/dL (70-110)
[2022-11-01 14:38] VITALS: BP 122/85; PULSE 96
--- NOTE | 2022-11-01 15:58 | FL ---
EXAMINATION TYPE: FL guided pain mgmt statistic DATE OF EXAM: 11/01/2022 CLINICAL HISTORY: Low back pain. TECHNIQUE: Fluoroscopy. COMPARISON: None. FINDINGS: Fluoroscopic guidance was provided during pain relief procedure performed by Dr. Lemus . A total of 3.9 seconds of fluoroscopic time was utilized during the procedure and two spot images a re acquired. Images acquired shows needle localization at L5 level. IMPRESSION: As Above. TOTAL DAP = 0.0180 mGy x m2
== END 2022-11-01 14:46 | disposition home or self-care (01) ==
LOC: ORPAIN 12:47
DX: M51.16 Intervertebral disc disorders with radiculopathy, lumbar region (principal); I10 Essential (primary) hypertension; M19.90 Unspecified osteoarthritis, unspecified site; G47.33 Obstructive sleep apnea (adult) (pediatric); Z79.82 Long term (current) use of aspirin; Z90.89 Acquired absence of other organs; Z79.899 Other long term (current) drug therapy; Z79.01 Long term (current) use of anticoagulants
CPT/HCPCS: 81025; 62323; J2250; J1030; J3010; Q9966

== ENCOUNTER → 2022-11-28 | Outpatient (CLI) | payer OTHER ==
[2022-11-28 14:55] VITALS: BP 120/78; PULSE 86; RESP 18; TEMP 98.8
--- NOTE | 2022-11-28 15:48 | P.PAINPG ---
PQRS Measure Charge Sheet Comment: A 36 yr old R AKA wheelchair bound female w mother at side with a history of severe and chronic LBP secondary to lumbar DDD and spondylosis with facet arthropathy without myelopathy presents today for evaluation s/p JESSICA L5-S1. Pt states she experienced 100 % pain relief x 4 wks s/p procedure. Pain level is provoked at 0 /10 in intensity. Pain has no provocative factors. Pain is alleviated with injections. Interventional pain procedures completed include JESSICA L5-S1 Patient is currently on DENIES Patient denies any side effects of the medication(s), denies excessive drowsiness or sleepiness, denies suicidal ideation and reports that the current pain medication is helping to control the pain and improve activities of daily living. Patient denies any motor or sensory deficits. Patient denies any fever or night sweats, denies any change in the bowel movements or urination. Physical Examination: -Constitutional: Cooperative. Not in acute distress . - Neurologic: Cranial nerve II to XII intact. No focal neurological deficits. - Psychatric: Alert & oriented x 3. Matching mood & appropriate affect. Judgment and insight intact. - Musculoskeletal: Cervical spine: Muscle bulk/ tone/ strength in the bilateral upper extremities normal Vertebral body tenderness to palpation over Spurling test positive Distraction test positive Facet loading test positive TTP Thoracic spine Muscle bulk / tone/ strength in the bilateral paraspinal muscles normal Vertebral body tender to palpation over Facet loading test positive TTP Lumbar spine: Motor bulk/ tone/ strength lower extremities , thigh and legs : 5/5 Deep tendon reflexes : Normal Knee Jerk. Normal Ankle Jerk . Vertebral body tenderness to palpation over Moore Test positive Lumbar Facet Loading Test positive Straight Leg Raise: positive at 30 degrees right side/ left side Gaenslen's Test positive Sacral spine : Severe tenderness over the Sacroiliac joint: right side / left side Range of motion: Flexion of the lumbar spine <60 degrees Range of motion: Extension of the lumbar spine <20 degrees Gaenslen's Test positive right side / left side Thomas test: positive right side / left side Thigh Thrust Test positive right side / left side Sacral Thrust Test positive right side / left side Assessment and plan: Chronic LBP secondary to lumbar DDD, spondylosis with facet arthropathy without myelopathy May return to clinic on an as needed basis. All questions answered. I have spent less than 30 minutes on patient care today. Dr Melgar was available by phone for the evaluation of this patient. The time was used to review the medical records including relevant urine studies and Prescription history (MAPs), review of the available imaging, evaluation and examination of the patient, coordination of care with the medical staff and if applicable referring physicians, as well as creation of the medical record Home Medications: Ambulatory Orders Rivaroxaban [Xarelto] 15 mg PO BID-W/MEALS 08/03/22 Sertraline [Zoloft] 100 mg PO BID 08/03/22 methocarbamoL [Methocarbamol] 750 mg PO QID PRN 08/03/22 Atorvastatin [Lipitor] 80 mg PO DAILY 90 Days #90 tab 08/13/22 Amoxic-Pot Clav 875-125Mg [Augmentin 875-125] 1 tab PO Q8H 10/30/22 Famotidine 20 mg PO DAILY 10/30/22 Gabapentin [Neurontin] 800 mg PO QID PRN 10/30/22 Spironolactone 50 mg PO BID 10/30/22 oxyCODONE-APAP 10-325MG [Percocet 10-325 mg] 1 each PO Q6HR PRN 10/30/22 Controlled Substance Measures - Controlled Substance Measures Is patient prescribed a controlled substance at discharge?: No
== END ==
LOC: PNWHC3 13:45
PROVIDERS: ATTEND Specialist
DX: M51.37 Other intervertebral disc degeneration, lumbosacral region (principal); G89.29 Other chronic pain; M47.817 Spondylosis without myelopathy or radiculopathy, lumbosacral region
CPT/HCPCS: 99211

== ENCOUNTER 2022-12-01 16:35 | Emergency (ER) | payer OTHER ==
[2022-12-01] MEDS ORDERED: HYDROmorphone 1 MG/ML 1 ML SYRINGE IVP STA ×3 (16:54→20:43)
--- NOTE | 2022-12-01 17:02 | ED ---
Extremity Problem HPI - General Chief complaint: Extremity Injury, Lower Stated complaint: Leg swelling Time Seen by Provider: 12/01/22 16:39 Source: patient, family, EMS, RN notes reviewed Mode of arrival: EMS Limitations: no limitations - History of Present Illness Initial comments: This is a 37 year old female who presents to the emergency department for left leg pain and swelling. Reports both pain and numbness that started 2-3 days ago. The pain and numbness start in the calf and go down the leg. 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 This was done at [facility]. She had multiple complications following this procedure and is terrified of losing the left leg as well. She takes Robaxin, Neurontin, and Percocet for pain, however this has not been effectively managing this pain. She is still on a blood thinner. Denies any chest pain or shortness of breath. Denies any fevers, chills, sore throat, cough, dyspnea, chest pain, palpitations, abdominal pain, nausea, vomiting, diarrhea, back pain, or headaches. MD Complaint: extremity pain, extremity swelling Onset/Timin -: days(s) Location: left, lower extremity - Related Data Home Medications Medication Instructions Recorded Confirmed Rivaroxaban [Xarelto] 15 mg PO BID-W/MEALS 08/03/22 10/30/22 Sertraline [Zoloft] 100 mg PO BID 08/03/22 10/30/22 methocarbamoL [Methocarbamol] 750 mg PO QID PRN 08/03/22 10/30/22 Amoxic-Pot Clav 875-125Mg 1 tab PO Q8H 10/30/22 10/30/22 [Augmentin 875-125] Famotidine 20 mg PO DAILY 10/30/22 10/30/22 Gabapentin [Neurontin] 800 mg PO QID PRN 10/30/22 10/30/22 Spironolactone 50 mg PO BID 10/30/22 10/30/22 oxyCODONE-APAP 10-325MG [Percocet 1 each PO Q6HR PRN 10/30/22 10/30/22 10-325 mg] Previous Rx's Medication Instructions Recorded Atorvastatin [Lipitor] 80 mg PO DAILY 90 Days #90 tab 08/13/22 Allergies Allergy/AdvReac Type Severity Reaction Status Date / Time No Known Allergies Allergy Verified 12/01/22 16:55 Review of Systems ROS Statement: Those systems with pertinent positive or pertinent negative responses have been documented in the HPI. ROS Other: All systems not noted in ROS Statement are negative. Past Medical History Past Medical History: Deep Vein Thrombosis (DVT) History of Any Multi-Drug Resistant Organisms: None Reported Past Surgical History: Tonsillectomy, Tubal Ligation Additional Past Surgical History / Comment(s): Right AKA Past Anesthesia/Blood Transfusion Reactions: No Reported Reaction Past Psychological History: No Psychological Hx Reported Smoking Status: Current every day smoker, Former smoker Past Alcohol Use History: None Reported Past Drug Use History: None Reported - Past Family History Mother Family Medical History: No Reported History Father Additional Family Medical History / Comment(s): heart disease, Parkinson's disease. General Exam Limitations: no limitations General appearance: alert, anxious, in distress Head exam: Present: atraumatic, normocephalic, normal inspection Respiratory exam: Present: normal lung sounds bilaterally. Absent: respiratory distress, wheezes, rales, rhonchi, stridor Cardiovascular Exam: Present: regular rate, normal rhythm, normal heart sounds. Absent: systolic murmur, diastolic murmur, rubs, gallop, clicks Extremities exam: Present: other (No erythema, swelling, or increased heat to the left lower extremity. Calf tenderness. 2+ DP and PT pulses. Capillary ref ill less than 1 second. Full active and passive range of motion.) Neurological exam: Present: alert, oriented X3, CN II-XII intact Psychiatric exam: Present: normal affect, normal mood Skin exam: Present: warm, dry, intact, normal color. Absent: rash Course Vital Signs 12/01/22 12/01/22 12/01/22 16:52 17:00 18:00 Temperature Pulse Rate 91 91 Respiratory 18 20 Rate Blood Pressure 129/64 107/75 O2 Sat by Pulse 97 98 97 Oximetry 12/01/22 12/01/22 12/01/22 19:00 20:00 21:00 Temperature Pulse Rate 85 78 Respiratory 18 20 Rate Blood Pressure 110/64 75/54 111/69 O2 Sat by Pulse 97 99 92 L Oximetry 12/01/22 21:07 Temperature 98.6 F Pulse Rate Respiratory Rate Blood Pressure O2 Sat by Pulse Oximetry Medical Decision Making - Medical Decision Making This is a 37-year-old female who presents to the emergency department for left leg pain and swelling. Was pt. sent in by a medical professional or institution? @ -No Did you speak to anyone other than the patient for history? @ -No Did you review nursing and triage notes? @ -Yes, and I agree, it is accurate with regards to the patient's symptoms. Were old charts reviewed? @ -No Differential Diagnosis? @ -Differential Leg Pain: Leg fracture, leg sprain, DVT, PVD, arterial insufficiency, iliac artery aneurysm, cellulitis, compartment syndrome, tendinopathy, nerve entrapment, piriformis syndrome, osteoarthritis, rhabdomyolysis, myositis, cramping from an electrolyte imbalance, this is not meant to be an all inclusive list. EKG interpreted by me (3pts min.)? @ -Not obtained X-rays interpreted by me (1pt min.)? @ -X-ray of the left foot and tib-fib obtained. My interpretation identifies no acute fractures or subcutaneous gas formation. CT interpreted by me (1pt min.)? @ -Computed tomography scan of the left lower extremity obtained. My interpretation identifies no acute fractures or soft tissue swelling. U/S interpreted by me (1pt. min.)? @ -Duplex ultrasound of the left lower extremity obtained. My interpretation identifies no evidence of a DVT. What testing was considered but not performed? (CT, X-rays, U/S, labs)? Why? @ -None What meds were considered but not given? Why? @ -None Did you discuss the management of the patient with other professionals? @ -No Did you reconcile home meds? @ -No Was smoking cessation discussed for >3mins.? @ -No Was critical care preformed (if so, how long)? @ -No Were there social determinants of health that impacted care today? How? (Homelessness, low income, unemployed, alcoholism, drug addiction, transportation, low edu. Level, literacy, decrease access to med. care, usp, rehab)? @ -No Was there de-escalation of care discussed even if they declined? (Discuss DNR or withdrawal of care, Hospice)? @ -No What co-morbidities impacted this encounter? (DM, HTN, Smoking, COPD, CAD, Cancer, CVA, Hep., AIDS, mental health diagnosis, sleep apnea, morbid obesity)? @ -Hx of DVT, morbid obesity Was patient admitted / discharged? @ -Discharged. Lab work obtained revealing minor leukocytosis and no other actionable findings. Duplex ultrasound of the left lower extremity obtained revealing no evidence of a DVT. X-ray of the left foot and tib-fib obtained as well, also revealing no acute process. It took 2mg of Dilauded and Toradol to adequately controlled the patient's pain. Discussed with the patient that we do not have a clear cause for her symptoms at this time. Given the patient's level of concern and prior right AKA, I am agreeable to additional workup with the patient. We had discussed speaking with Dr. Peters, however he was not on- call at the time of the patient's visit. We subsequently decided to proceed with a computed tomography scan of the left lower extremity for further evaluation and if that was negative, she felt fairly comfortable with discharge home and following up with Dr. Peters on an outpatient basis. CT scan of the left lower extremity obtained, also revealing no acute findings. I did offer to speak with the provider covering for Dr. Peters to see if he would be agreeable to admission. However, the patient declined and states that she is comfortable with discharge home at this point. She was given very strict return parameters, in that if she has increasing pain or notices any changes in color or temperature, she should return to the emergency department. Undiagnosed new problem with uncertain prognosis? @ -None Drug Therapy requiring intensive monitoring for toxicity (Heparin, Nitro, Insulin, Cardizem)? @ -None Were any procedures done? @ -None Diagnosis/symptom? @ -Left leg pain Acute, or Chronic, or Acute on Chronic? @ -Acute Uncomplicated (without systemic symptoms) or Complicated (systemic symptoms)? @ -Uncomplicated Side effects of treatment? @ -None Exacerbation, Progression, or Severe Exacerbation] @ -Not applicable Poses a threat to life or bodily function? @ -Not at this time. Return precautions reviewed in depth, the patient is instructed to return to the emergency department with any new, worsening, or concerning symptoms. Patient verbalized understanding. This case was discussed in detail with the attending ED physician, Dr. Cano. Presentation, findings, and treatment plan discussed in detail as well. - Lab Data Result diagrams: 12/01/22 17:07 12/01/22 17:07 Lab Results 12/01/22 12/01/22 12/01/22 Range/Units 17:07 17:07 17:07 WBC 12.7 H (3.8-10.6) k/uL RBC 4.91 (3.80-5.40) m/uL Hgb 14.3 (11.4-16.0) gm/dL Hct 44.7 (34.0-46.0) % MCV 91.1 (80.0-100.0) fL MCH 29.0 (25.0-35.0) pg MCHC 31.9 (31.0-37.0) g/dL RDW 15.4 (11.5-15.5) % Plt Count 434 (150-450) k/uL MPV 8.5 Neutrophils % 68 % Lymphocytes % 24 % Monocytes % 4 % Eosinophils % 3 % Basophils % 0 % Neutrophils # 8.6 H (1.3-7.7) k/uL Lymphocytes # 3.0 (1.0-4.8) k/uL Monocytes # 0.5 (0-1.0) k/uL Eosinophils # 0.3 (0-0.7) k/uL Basophils # 0.0 (0-0.2) k/uL PT (9.0-12.0) sec INR (<1.2) APTT (22.0-30.0) sec Sodium 139 (137-145) mmol/L Potassium 4.7 (3.5-5.1) mmol/L Chloride 104 (98-107) mmol/L Carbon Dioxide 25 (22-30) mmol/L Anion Gap 10 mmol/L BUN 18 H (7-17) mg/dL Creatinine 0.55 (0.52-1.04) mg/dL Est GFR (CKD-EPI)AfAm >90 (>60 ml/min/1.73 sqM) Est GFR (CKD-EPI)NonAf >90 (>60 ml/min/1.73 sqM) Glucose 174 H (74-99) mg/dL Plasma Lactic Acid Charly 1.5 (0.7-2.0) mmol/L Calcium 9.4 (8.4-10.2) mg/dL Magnesium 2.1 (1.6-2.3) mg/dL Total Bilirubin 0.5 (0.2-1.3) mg/dL AST 33 (14-36) U/L ALT 36 H (4-34) U/L Alkaline Phosphatase 114 (38-126) U/L Creatine Kinase <20 L (30-135) U/L C-Reactive Protein 0.7 (<1.0) mg/dL Total Protein 6.8 (6.3-8.2) g/dL Albumin 3.9 (3.5-5.0) g/dL 12/01/22 Range/Units 17:07 WBC (3.8-10.6) k/uL RBC (3.80-5.40) m/uL Hgb (11.4-16.0) gm/dL Hct (34.0-46.0) % MCV (80.0-100.0) fL MCH (25.0-35.0) pg MCHC (31.0-37.0) g/dL RDW (11.5-15.5) % Plt Count (150-450) k/uL MPV Neutrophils % % Lymphocytes % % Monocytes % % Eosinophils % % Basophils % % Neutrophils # (1.3-7.7) k/uL Lymphocytes # (1.0-4.8) k/uL Monocytes # (0-1.0) k/uL Eosinophils # (0-0.7) k/uL Basophils # (0-0.2) k/uL PT 11.4 (9.0-12.0) sec INR 1.1 (<1.2) APTT 30.4 H (22.0-30.0) sec Sodium (137-145) mmol/L Potassium (3.5-5.1) mmol/L Chloride (98-107) mmol/L Carbon Dioxide (22-30) mmol/L Anion Gap mmol/L BUN (7-17) mg/dL Creatinine (0.52-1.04) mg/dL Est GFR (CKD-EPI)AfAm (>60 ml/min/1.73 sqM) Est GFR (CKD-EPI)NonAf (>60 ml/min/1.73 sqM) Glucose (74-99) mg/dL Plasma Lactic Acid Charly (0.7-2.0) mmol/L Calcium (8.4-10.2) mg/dL Magnesium (1.6-2.3) mg/dL Total Bilirubin (0.2-1.3) mg/dL AST (14-36) U/L ALT (4-34) U/L Alkaline Phosphatase (38-126) U/L Creatine Kinase (30-135) U/L C-Reactive Protein (<1.0) mg/dL Total Protein (6.3-8.2) g/dL Albumin (3.5-5.0) g/dL - Radiology Data Radiology results: report reviewed, image reviewed Disposition Clinical Impression: Left leg pain Disposition: HOME SELF-CARE Instructions (If sedation given, give patient instructions): Leg Pain (ED) Additional Instructions: Return to the emergency department with any new, worsening, or concerning symptoms, especially if you develop any discoloration or temperature changes to the leg. Continue to take your pain medications and keep the leg elevated. Contact Dr. Peters's office first thing Saturday morning for a follow-up appointment. Follow up with your primary care provider in 1-2 days. Is patient prescribed a controlled substance at d/c from ED?: No Referrals: Tio Peters MD [Primary Care Provider] - 1-2 days
[2022-12-01 17:32] LABS: Basophils % (A) 0 %; Eosinophils # (A) 0.3 k/uL (0-0.7); Eosinophils % (A) 3 %; HCT 44.7 % (34.0-46.0); HGB 14.3 gm/dL (11.4-16.0); Lymphocytes % (A) 24 %; MCHC 31.9 g/dL (31.0-37.0); MCV 91.1 fL (80.0-100.0); Mean Platelet Volume 8.5; Monocytes # (A) 0.5 k/uL (0-1.0); Monocytes % (A) 4 %; Neutrophils # (A) 8.6 k/uL (1.3-7.7); Neutrophils % (A) 68 %; Platelet Count 434 k/uL (150-450); RBC 4.91 m/uL (3.80-5.40); RDW 15.4 % (11.5-15.5); WBC 12.7 k/uL (3.8-10.6)
[2022-12-01 17:47] LABS: INR 1.1 (<1.2); Partial Thromboplastin Time 30.4 sec (22.0-30.0); Prothrombin Time 11.4 sec (9.0-12.0)
--- NOTE | 2022-12-01 17:50 | US ---
EXAMINATION TYPE: US venous doppler duplex LE LT DATE OF EXAM: 12/01/2022 4:55 PM COMPARISON: NONE CLINICAL INDICATION: Female, 37 years old with history of Left leg pain and swelling; Left leg pain x 3 days, patient on blood thinners SIDE PERFORMED: Left TECHNIQUE: The lower extremity deep venous system is examined utilizing real time linear array sonog jonas with graded compression, doppler sonography and color-flow sonography. VESSELS IMAGED: Common Femoral Vein Deep Femoral Vein Greater Saphenous Vein * Femoral Vein Popliteal Vein Small Saphenous Vein * Proximal Calf Veins (* superficial vessels) Left Leg: Appears negative for DVT IMPRESSION: No evidence for DVT within the left lower extremity imaged from the groin to the upper calf.
[2022-12-01] MEDS ORDERED: KETOROLAC 15 MG/ML 1 ML VIAL IVP STA ×2 (17:55→20:43)
[2022-12-01 18:15] VITALS: RESP 20
--- NOTE | 2022-12-01 18:35 | XR ---
EXAMINATION TYPE: XR tibia fibula LT DATE OF EXAM: 12/01/2022 6:14 PM INDICATION: Patient age:Female; 37 years old; Reason for study: Pain and swelling;. COMPARISON: None TECHNIQUE: The left tibia/fibula was examined in AP and lateral projections. FINDINGS: No evidence of any acute osseous pathology, joint dislocation, or soft tissue swelling is n oted. IMPRESSION: No evidence of acute fracture.
--- NOTE | 2022-12-01 18:35 | XR ---
EXAMINATION TYPE: XR foot complete LT DATE OF EXAM: 12/01/2022 6:14 PM INDICATION: Patient age:Female; 37 years old; Reason for study: Pain and swelling; PHH. COMPARISON: None TECHNIQUE: The left foot was examined in the AP, oblique, and lateral projections. FINDINGS: No evidence of any acute osseous pathology. Joints are preserved. Accessory ossicle near the navicular. Soft tissue swelling around the forefoot. No radiopaque foreig n body. IMPRESSION: 1. No evidence of acute fracture. 2. Nonspecific soft tissue 3. swelling around the forefoot. No radiopaque foreign body.
[2022-12-01 19:13] LABS: African American GFR (CKD) >90 (>60 ml/min/1.73 sqM); Albumin 3.9 g/dL (3.5-5.0); Anion Gap 10 mmol/L; Blood Urea Nitrogen 18 mg/dL (7-17); Calcium 9.4 mg/dL (8.4-10.2); Carbon Dioxide 25 mmol/L (22-30); Chloride 104 mmol/L (98-107); Glucose 174 mg/dL (74-99); Non-African American GFR(CKD) >90 (>60 ml/min/1.73 sqM); Potassium 4.7 mmol/L (3.5-5.1); Sodium 139 mmol/L (137-145); Total Bilirubin 0.5 mg/dL (0.2-1.3); Total Protein 6.8 g/dL (6.3-8.2)
[2022-12-01 19:17] LABS: ALT 36 U/L (4-34); AST 33 U/L (14-36); Alkaline Phosphatase 114 U/L (38-126); C Reactive Protein 0.7 mg/dL (<1.0); Creatine Kinase <20 U/L (30-135); Magnesium 2.1 mg/dL (1.6-2.3)
[2022-12-01 20:28] VITALS: PULSE 78
--- NOTE | 2022-12-01 20:36 | CT ---
EXAMINATION TYPE: CT lower extremity LT w con CT DLP: 1473.5 mGycm, Automated exposure control for dose reduction was used. DATE OF EXAM: 12/01/2022 8:20 PM COMPARISON: Extremity radiograph same day. CLINICAL INDICATION:Female, 37 years old with history of Pain in left calf, out of proportion to exam ; PHH, left lower calf pain, h/o amputation of right leg, r/o blood clots TECHNIQUE: Axial images were obtained of the left lower extremity . Additional coronal and sagittal reformatted images and soft tissue and bone window were obtained for review. 3-D reconstruction was c reated on a separate workstation. Contrast used:100 mL of Isovue 300 with IV Contrast, Oral contrast used: None FINDINGS: There is no evidence of fracture, subluxation, or dislocation. No significant soft tissue swelling or joint effusion is identified. No focal muscular atrophy or edema is identified. No radiop aque foreign body identified. Delayed scanning of the patient with a more venous phase. The arterial vasculature is suboptimally visualized. There is no evidence for arterial vascular occlusion and what is visualized. The venous structures demonstrate contrast suggesting patency. The proximal left leg venous structures are not opacified with contrast. This felt to be due to phase of timing. IMPRESSION: No evidence of fracture. No acute lower extremity process. There is delayed imaging of co ntrast which limits evaluation of the arteries. What is visualized appears patent, no evidence for va scular occlusion
[2022-12-01 21:08] VITALS: BP 111/69; TEMP 98.6
== END 2022-12-01 21:21 | disposition home or self-care (01) ==
LOC: EC 16:35
DX: M79.605 Pain in left leg (principal); Z86.718 Personal history of other venous thrombosis and embolism; F17.200 Nicotine dependence, unspecified, uncomplicated; Z79.01 Long term (current) use of anticoagulants; Z79.899 Other long term (current) drug therapy
CPT/HCPCS: 36415; 80053; 82550; 83605; 83735; 85025; 85610; 85730; 86140; 73590; 73630; 93971; 73701; 99285; 96374; 96375; 96376 ×3; J1170; J1885; Q9967

== ENCOUNTER 2022-12-03 13:22 | Observation (INO) | payer OTHER ==
--- NOTE | 2022-12-03 15:01 | ED ---
Extremity Problem HPI - General Chief complaint: Extremity Problem,Nontraumatic Stated complaint: lt leg pain Time Seen by Provider: 12/03/22 14:41 Source: patient Mode of arrival: ambulatory Limitations: no limitations - History of Present Illness Initial comments: 37-year-old female with past medical history significant for recent right AKA in June 2022 resents to the ED with a chief complaint of left lower leg pain. Patient was recently seen for this 2 days ago and had negative x-ray, Doppler, CT of the left lower leg for this. Patient was to follow-up with Dr. Peters scheduled for 12/05/22. Denies any new injury. No other complaints. - Related Data Home Medications Medication Instructions Recorded Confirmed Rivaroxaban [Xarelto] 15 mg PO BID-W/MEALS 08/03/22 10/30/22 Sertraline [Zoloft] 100 mg PO BID 08/03/22 10/30/22 methocarbamoL [Methocarbamol] 750 mg PO QID PRN 08/03/22 10/30/22 Amoxic-Pot Clav 875-125Mg 1 tab PO Q8H 10/30/22 10/30/22 [Augmentin 875-125] Famotidine 20 mg PO DAILY 10/30/22 10/30/22 Gabapentin [Neurontin] 800 mg PO QID PRN 10/30/22 10/30/22 Spironolactone 50 mg PO BID 10/30/22 10/30/22 oxyCODONE-APAP 10-325MG [Percocet 1 each PO Q6HR PRN 10/30/22 10/30/22 10-325 mg] Previous Rx's Medication Instructions Recorded Atorvastatin [Lipitor] 80 mg PO DAILY 90 Days #90 tab 08/13/22 Allergies Allergy/AdvReac Type Severity Reaction Status Date / Time No Known Allergies Allergy Verified 12/03/22 13:30 Review of Systems ROS Statement: Those systems with pertinent positive or pertinent negative responses have been documented in the HPI. ROS Other: All systems not noted in ROS Statement are negative. Past Medical History Past Medical History: Deep Vein Thrombosis (DVT) History of Any Multi-Drug Resistant Organisms: None Reported Past Surgical History: Tonsillectomy, Tubal Ligation Additional Past Surgical History / Comment(s): Right AKA Past Anesthesia/Blood Transfusion Reactions: No Reported Reaction Past Psychological History: No Psychological Hx Reported Smoking Status: Current every day smoker, Former smoker Past Alcohol Use History: None Reported Past Drug Use History: None Reported - Past Family History Mother Family Medical History: No Reported History Father Additional Family Medical History / Comment(s): heart disease, Parkinson's disease. General Exam Limitations: no limitations General appearance: alert, in distress (Tearful) Head exam: Present: atraumatic, normocephalic Respiratory exam: Present: normal lung sounds bilaterally Cardiovascular Exam: Present: normal rhythm GI/Abdominal exam: Present: soft Extremities exam: Present: other (AKA of the right lower extremity. LLE extremity shows no warmth, erythema or pitting edema. Producible tenderness to palpation at the level of the calf. 2+ DP/PT pulses) Back exam: Present: other (No midline cervical thoracic or lumbar spinal tenderness to palpation) Neurological exam: Present: alert, oriented X3 Skin exam: Present: warm, dry Course Vital Signs 12/03/22 13:29 Temperature 98.2 F Pulse Rate 85 Respiratory 20 Rate Blood Pressure 149/105 O2 Sat by Pulse 99 Oximetry Medical Decision Making - Medical Decision Making Was pt. sent in by a medical professional or institution (, [facility], ORGANIC CHEMISTRY PROFESSOR, urgent c are, hospital, or penitentiary...) When possible be specific @ -No Did you speak to anyone other than the patient for history (EMS, parent, family, police, friend...)? What history was obtained from this source @ -No Did you review nursing and triage notes (agree or disagree)? Why? @ -I reviewed and agree with nursing and triage notes Were old charts reviewed (outside hosp., previous admission, EMS record, old EKG, old radiological studies, urgent care reports/EKG's, penitentiary records)? Report findings @ -Prior visit here on 12/01/22 showing negative plain films, negative CT, Doppler of the left lower extremity. Differential Diagnosis (chest pain, altered mental status, abdominal pain women, abdominal pain men, vaginal bleeding, weakness, fever, dyspnea, syncope, headache, dizziness, GI bleed, back pain, seizure, CVA, palpatations, mental health, musculoskeletal)? @ -DVT, SVT, acute fracture. This is not meant to be an all-inclusive list. EKG interpreted by me (3pts min.). @ -None X-rays interpreted by me (1pt min.). @ -None CT interpreted by me (1pt min.). @ -None done U/S interpreted by me (1pt. min.). @ -None done What testing was considered but not performed or refused? (CT, X-rays, U/S, labs)? Why? @ -None What meds were considered but not given or refused? Why? @ -None Did you discuss the management of the patient with other professionals (manuel lozano i.e. , PA, ORGANIC CHEMISTRY PROFESSOR, lab, RT, psych nurse, social organization professor, cash management clerk, teacher, chief resource officer, counter caser)? Give summary @ -No Was smoking cessation discussed for >3mins.? @ -No Was critical care preformed (if so, how long)? @ -No Were there social determinants of health that impacted care today? How? (Homelessness, low income, unemployed, alcoholism, drug addiction, transportation, low edu. Level, literacy, decrease access to med. care, residential, rehab)? @ -No Was there de-escalation of care discussed even if they declined (Discuss DNR or withdrawal of care, Hospice)? DNR status @ -No What co-morbidities impacted this encounter? (DM, HTN, Smoking, COPD, CAD, Cancer, CVA, ARF, Chemo, Hep., AIDS, mental health diagnosis, sleep apnea, morbid obesity)? @ -None Was patient admitted / discharged? Hospital course, mention meds given and route, prescriptions, significant lab abnormalities, going to OR and other pertinent info. @ -Admitted. Spoke to Dr. Peters who would like to see the patient with a consult to vascular. Undiagnosed new problem with uncertain prognosis? @ -No Drug Therapy requiring intensive monitoring for toxicity (Heparin, Nitro, Insulin, Cardizem)? @ -No Were any procedures done? @ -No Diagnosis/symptom? @ -Left leg pain, history of right AKA Acute, or Chronic, or Acute on Chronic? @ -Acute Uncomplicated (without systemic symptoms) or Complicated (systemic symptoms)? @ -Uncomplicated Side effects of treatment? @ -No Exacerbation, Progression, or Severe Exacerbation? @ -No Poses a threat to life or bodily function? How? (Chest pain, [place], [place], pneumonia, PE, COPD, DKA, ARF, appy, cholecystitis, CVA, Diverticulitis, Homicidal, Suicidal, threat to staff... and all critical care pts) @ -No Disposition Clinical Impression: Left leg pain Disposition: ADMITTED IP TO THIS HOSP Condition: Good Referrals: Tio Peters MD [Primary Care Provider] - 1-2 days Time of Disposition: 15:55
[2022-12-03] MEDS ORDERED: HYDROmorphone 1 MG/ML 1 ML SYRINGE IVP STA (15:05)
[2022-12-03] MEDS ORDERED: NALOXONE 0.4 MG/ML 1 ML VIAL IV PRN (16:46)
[2022-12-03] MEDS: SODIUM CHLORIDE 0.9% 1,000 ML IV SCH (17:21)
[2022-12-03] MEDS: ONDANSETRON 4 MG/2 ML VIAL IVP PRN (17:51)
[2022-12-03] MEDS: HYDROmorphone 1 MG/ML 1 ML SYRINGE IVP PRN ×2 (17:53→21:00)
[2022-12-03] MEDS ORDERED: oxyCODONE-APAP 10-325MG 1 EACH TAB PO PRN (23:50)
[2022-12-04] MEDS: HYDROmorphone 1 MG/ML 1 ML SYRINGE IVP PRN ×4 (00:13→09:44)
[2022-12-04] MEDS ORDERED: RIVAROXABAN 15 MG TAB PO SCH (07:30)
[2022-12-04] MEDS ORDERED: IPRATROPIUM 0.5 MG/2.5 ML NEBU INHALATION SCH (08:00)
[2022-12-04] MEDS ORDERED: SYMBICORT 160-4.5 MCG INHALER INHALATION SCH (08:00)
[2022-12-04] MEDS ORDERED: TIOTROPIUM 2.5 MCG INHALER INHALATION SCH (08:00)
--- NOTE | 2022-12-04 08:50 | CT ---
EXAMINATION TYPE: CT angio lower extremity LT DATE OF EXAM: 12/04/2022 COMPARISON: 12/01/2022 HISTORY: 37-year-old female peripheral artery disease, Left leg pain TECHNIQUE: Contiguous axial scanning of the left lower extremity performed with IV Contrast, patient injected with 100ml mL of Isovue 370. Coronal/sagittal reconstructions performed. 3-D reconstructions generated on a dedicated independent workstation. CT DLP: 1349.4 mGycm Automated exposure control for dose reduction was used. FINDINGS: There appears to be an infrarenal abdominal aortic bypass graft. There is nonopacification of the right common or right external iliac arteries. Some reconstitution i s noted of the right internal iliac artery. There is satisfactory enhancement of the left common iliac artery. Possible 7 mm saccular aneurysm al roberto the posterior margin of the opacified left common iliac artery, and axial image 42. Possible intraluminal filling defect at the left common iliac artery bifurcation, axial image 67. The left MARINE DIESEL TECHNICIAN and PFA are patent. The left SFA and popliteal artery are patent. Anterior tibial artery shows normal takeoff but then becomes markedly diminutive and no longer well s een in the upper third leg. Tibial peroneal trunk is visualized. Runoff via the posterior tibial artery. There is some adjacent venous contamination and a diminutive peroneal artery is seen to the distal th ird leg level. Some generalized soft tissue swelling of the foot. IMPRESSION: 1. THERE APPEARS TO BE AN INFRARENAL ABDOMINAL AORTIC BYPASS GRAFT. 2. NONOPACIFICATION OF THE RIGHT COMMON AND RIGHT EXTERNAL ILIAC ARTERIES. THERE IS SOME RECONSTITUTI ON OF THE RIGHT INTERNAL ILIAC ARTERY. CLINICALLY CORRELATE. 3. POSSIBLE 7 MM SACCULAR ANEURYSM FROM THE POSTERIOR MARGIN OF THE LEFT COMMON ILIAC ARTERY. 4. POSSIBLE INTRALUMINAL FILLING DEFECT AT THE LEFT COMMON ILIAC ARTERY BIFURCATION, AXIAL IMAGE 67. LOOSE CLOT IS NOT EXCLUDED. 5. ARTERIAL SYSTEM IS PATENT IN THE LEFT THIGH AND KNEE. 6. ANTERIOR TIBIAL ARTERY SHOWS NORMAL TAKEOFF BUT THEN BECOMES MARKEDLY DIMINUTIVE AND IS NO LONGER WELL SEEN IN THE UPPER THIRD LEG. 7. SATISFACTORY RUNOFF VIA THE POSTERIOR TIBIAL ARTERY. THE PERONEAL ARTERY IS LIMITED BY ADJACENT VE NOUS CONTAMINATION. A DIMINUTIVE PERONEAL ARTERY IS SEEN TO THE DISTAL THIRD LEG LEVEL.
[2022-12-04] MEDS ORDERED: FAMOTIDINE 20 MG TAB PO SCH (09:00)
[2022-12-04] MEDS ORDERED: ATORVASTATIN 80 MG TAB PO SCH (09:00)
[2022-12-04] MEDS ORDERED: SERTRALINE 100 MG TAB PO SCH (09:00)
[2022-12-04] MEDS ORDERED: SPIRONOLACTONE 25 MG TAB PO SCH (09:00)
--- NOTE | 2022-12-04 09:31 | P.GSCN ---
History of Present Illness Consult date: 12/04/22 Reason for Consult: left leg pain Requesting physician: Tio Peters History of present illness: This pleasant 37-year-old female who presented to the emergency department yesterday as well as 2 days before that for left lower extremity pain. Patient states she recently fell about one week ago and since then has had pain which she states is mostly in the lower part of the leg and her foot and toes. She has a past medical history of DVT, chronic back pain with L5-S1 lumbar disc herniation and impingement, aortobifem occlusion status post graft and right yhzkx-jjh-[id number] amputation followed by bypass. During her first emergency physician on 12/01/2022 imaging was obtained of a venous duplex of the left lower extremity which was negative for DVT, foot x-ray and left tib-fib x-ray that showed no acute fracture. Foot x-ray showed nonspecific soft tissue swelling around the forefoot no radio opaque foreign body. She also had a CT of the left lower extremity that showed no evidence of fracture or acute lower extremity process. With no evidence of vascular occlusion. Patient presented back because she was concerned that she still had some pain down into her foot. Vascular surgery was consulted for left lower extremity pain. Patient states pain has improved since her evaluation in the emergency department. She denies any fevers or chills. Sensorimotor is intact. She also recently had injections with pain management for back pain on 11/28/2022. This morning patient underwent CTA of the left lower extremity report as follows appears to be infrarenal abdominal aortic bypass graft, non-place medication of the right common and right external iliac arteries some reconstitution of the right internal iliac artery. Clinically correlate. Possible 7 mm saccular aneurysm from the posterior margin of the left common iliac artery. Possible intraluminal filling defect at the left common iliac artery bifurcation. Loose clot not excluded. Arterial system is patent and the left thigh and knee. Anterior tibial artery shows normal take off but then becomes markedly diminutive and no longer seen in the upper third leg. Satisfactory runoff via the posterior tibial artery. The perineal artery is limited by adjacent venous contamination. A diminutive peritoneal artery is seen to the distal third leg level. Review of Systems A 14 point review systems was completed all pertinent positives and negatives as stated in the HPI. Past Medical History Past Medical History: Deep Vein Thrombosis (DVT) History of Any Multi-Drug Resistant Organisms: None Reported Past Surgical History: Tonsillectomy, Tubal Ligation Additional Past Surgical History / Comment(s): Right AKA Past Anesthesia/Blood Transfusion Reactions: No Reported Reaction Past Psychological History: No Psychological Hx Reported Smoking Status: Current every day smoker, Former smoker Past Alcohol Use History: None Reported Past Drug Use History: None Reported - Past Family History Mother Family Medical History: No Reported History Father Additional Family Medical History / Comment(s): heart disease, Parkinson's disease. Medications and Allergies Home Medications Medication Instructions Recorded Confirmed Type Rivaroxaban [Xarelto] 15 mg PO BID-W/MEALS 08/03/22 12/03/22 History methocarbamoL [Methocarbamol] 750 mg PO QID 08/03/22 12/03/22 History Atorvastatin [Lipitor] 80 mg PO DAILY 90 Days #90 tab 08/13/22 12/03/22 Rx Famotidine 20 mg PO DAILY 10/30/22 12/03/22 History Gabapentin [Neurontin] 800 mg PO QID 10/30/22 12/03/22 History Spironolactone 50 mg PO BID 10/30/22 12/03/22 History oxyCODONE-APAP 10-325MG [Percocet 1 tab PO Q6H PRN 10/30/22 12/03/22 History 10-325 mg] Budesonide/Formoterol Fumarate 2 puff INHALATION RT-BID 12/03/22 12/03/22 History [Symbicort 160-4.5 Mcg Inhaler] Sertraline [Zoloft] 100 mg PO BID 12/03/22 12/03/22 History Tiotropium 2.5 Mcg/Puff [Spiriva 1 puff INHALATION RT-HS 12/03/22 12/03/22 History Respimat 2.5 Mcg] Allergies Allergy/AdvReac Type Severity Reaction Status Date / Time No Known Allergies Allergy Verified 12/03/22 17:13 Surgical - Exam Vital Signs Temp Pulse Resp BP Pulse Ox 98.2 F 85 20 149/105 99 12/03/22 13:29 12/03/22 13:29 12/03/22 13:29 12/03/22 13:29 12/03/22 13:29 General appearance: The patient is alert, oriented, appears in no acute distress. HET: Head is normocephalic and atraumatic. Pupils are equal and reactive. Neck: Supple. Heart: Regular. Lungs: Equal expansion, normal respiratory effort. Abdomen: Soft, nontender, nondistended. Extremities: Right lower extremity with [id number] amputation. Left lower extremity pedal edema, good capillary refill, warm to the touch, sensorimotor intact. Femoral pulses present, difficult to palpate DP pulse. Neurological: No focal deficits. Strength and sensation are grossly intact. Assessment and Plan Assessment: 1. Left lower extremity pain 2. Recent fall 3. History of aortobifem occlusion status post graft 4. Chronic back pain with recent injection 11/28/2022 5. History of DVT on Xarelto Plan: 1. Continue Xarelto 2. CTA left lower extremity personally reviewed by Dr. Delvalle. No indications for any vascular surgical intervention at this time. Recommend outpatient follow-up with her vascular surgeon Dr. Giles. 3. Pain medication per primary medicine physician Thank you for this consultation, the patient is cleared from vascular surgery for discharge. The impression and plan of care has been dictated as directed. I performed a history and examination of this patient, discussed the same with the dictator. I agree with the dictator's note ,documented as a scribe. Any additional findings or plans will be noted.
[2022-12-04] MEDS: SODIUM CHLORIDE 0.9% 1,000 ML IV SCH (10:33)
[2022-12-04] MEDS: GABAPENTIN 400 MG CAP PO SCH ×2 (10:33→12:05)
[2022-12-04] MEDS: methocarbamoL 750 MG TAB PO SCH ×2 (10:37→12:05)
[2022-12-04] MEDS ORDERED: DEXTROSE 50% SYRINGE 50 ML IVP PRN ×2 (11:21)
[2022-12-04] MEDS: INSULIN ASPART (NovoLOG) 100 UNIT/ML VIAL SQ SCH ×2 (12:19→17:07)
[2022-12-04 12:20] LABS: Glucose,Whole Blood 143 mg/dL (70-110)
[2022-12-04] MEDS: HYDROmorphone 0.5 MG/0.5 ML SYRINGE IVP PRN ×2 (13:24→16:19)
[2022-12-04 14:12] VITALS: RESP 18; TEMP 98.2
[2022-12-04 14:15] VITALS: BP 138/73; PULSE 94
--- NOTE | 2022-12-04 14:46 | P.CNOR ---
History of Present Illness - HPI Consult date: 12/04/22 History of present illness: This is a 37-year-old female who is admitted for left lower extremity pain. Patient states that one week ago she fell onto her right side and continues to have pain and some numbness in the lower left leg. Patient states she is able to bear weight on the left lower extremity, but this is sore. Patient states that she has shooting pain from the knee to the top of the left foot. Patient denies any swelling or significant bruising. Patient has a history of right xylrk-yyw-[id number] amputation secondary to blood clots in June 2022. Patient states that she has a history of lower back issues as well. Patient states that she presented to the emergency room for this problem a couple of days ago and returned because of continued pain and concern for another vascular issue. Patient denies any fever, chills, erythema or ecchymosis. Review of Systems See HPI. Past Medical History Past Medical History: Deep Vein Thrombosis (DVT) History of Any Multi-Drug Resistant Organisms: None Reported Past Surgical History: Tonsillectomy, Tubal Ligation Additional Past Surgical History / Comment(s): Right AKA Past Anesthesia/Blood Transfusion Reactions: No Reported Reaction Past Psychological History: No Psychological Hx Reported Smoking Status: Current every day smoker, Former smoker Past Alcohol Use History: None Reported Past Drug Use History: None Reported - Past Family History Mother Family Medical History: No Reported History Father Additional Family Medical History / Comment(s): heart disease, Parkinson's disease. Medications and Allergies Home Medications Medication Instructions Recorded Confirmed Type Rivaroxaban [Xarelto] 15 mg PO BID-W/MEALS 08/03/22 12/03/22 History methocarbamoL [Methocarbamol] 750 mg PO QID 08/03/22 12/03/22 History Atorvastatin [Lipitor] 80 mg PO DAILY 90 Days #90 tab 08/13/22 12/03/22 Rx Famotidine 20 mg PO DAILY 10/30/22 12/03/22 History Gabapentin [Neurontin] 800 mg PO QID 10/30/22 12/03/22 History Spironolactone 50 mg PO BID 10/30/22 12/03/22 History oxyCODONE-APAP 10-325MG [Percocet 1 tab PO Q6H PRN 10/30/22 12/03/22 History 10-325 mg] Budesonide/Formoterol Fumarate 2 puff INHALATION RT-BID 12/03/22 12/03/22 History [Symbicort 160-4.5 Mcg Inhaler] Sertraline [Zoloft] 100 mg PO BID 12/03/22 12/03/22 History Tiotropium 2.5 Mcg/Puff [Spiriva 1 puff INHALATION RT-HS 12/03/22 12/03/22 History Respimat 2.5 Mcg] Allergies Allergy/AdvReac Type Severity Reaction Status Date / Time No Known Allergies Allergy Verified 12/03/22 17:13 Physical Examination On exam patient is resting comfortably in bed in no acute distress. Patient is alert and oriented 3. There is generalized tenderness to palpation over the left foot. There is no swelling, erythema or ecchymosis. Patient has full range of motion of the left foot and ankle and left knee without pain or difficulty. Patient is able to bear full weight on the left lower extremity. Sensation is intact to the left lower extremity. Calf soft and mildly tender to palpation. Neurovascular status and circulatory status are intact to left lower extremity. Results A CT of the left lower extremity dated 12/01/2022 was negative. X-rays of the left tibia/fibula and left foot dated 12/01/2022 are negative. - Labs Labs: Abnormal Lab Results - Last 24 Hours (Table) 12/04/22 Range/Units 12:18 POC Glucose (mg/dL) 143 H (70-110) mg/dL Assessment and Plan (1) Left leg pain Current Visit: Yes Status: Acute Code(s): M79.605 - PAIN IN LEFT LEG SNOMED Code(s): 614389264 (2) Sprain of left foot Current Visit: Yes Status: Acute Code(s): S93.602A - UNSPECIFIED SPRAIN OF LEFT FOOT, INITIAL ENCOUNTER SNOMED Code(s): 85298118 Plan: 1. X-rays and CT of the left lower extremity are reviewed and are negative. Recommend weightbearing as tolerated in a boot. It is also discussed that her symptoms may be related to her previous back issues. 2. Recommend follow-up on an outpatient basis once cleared by vascular team. We will continue to follow peripherally.
[2022-12-04] MEDS: ONDANSETRON 4 MG/2 ML VIAL IVP PRN (16:19)
[2022-12-04 16:44] LABS: Glucose,Whole Blood 122 mg/dL (70-110)
== END 2022-12-04 18:41 | disposition home or self-care (01) ==
LOC: EC 13:22 → INTOOBSV 15:46 → 4SSUR 15:46 → 1SOBS 12-04 12:11 → UNDODISIN 12-04 18:41
PROVIDERS: ADMIT Family Medicine; ATTEND Family Medicine
DX: S93.602A Unspecified sprain of left foot, initial encounter (principal); W19.XXXA Unspecified fall, initial encounter; G89.29 Other chronic pain; M54.9 Dorsalgia, unspecified; Z89.611 Acquired absence of right leg above knee; Z86.718 Personal history of other venous thrombosis and embolism; Z87.891 Personal history of nicotine dependence; Z95.1 Presence of aortocoronary bypass graft; Z79.01 Long term (current) use of anticoagulants; Z79.899 Other long term (current) drug therapy
CPT/HCPCS: 96361 ×2; 96376 ×3; 96374; 96375; 99285; 94640 ×2; 73706; G0378 ×3; J2405 ×2; J1170 ×3; Q9967

== ENCOUNTER 2022-12-24 20:31 | Emergency (ER) | payer OTHER ==
[2022-12-24] MEDS ORDERED: MORPHINE SULFATE 4 MG/ML SYRINGE IV STA (21:31)
--- NOTE | 2022-12-24 21:39 | ED ---
Extremity Problem HPI - General Chief complaint: Extremity Problem,Nontraumatic Stated complaint: Leg Turning Purple Time Seen by Provider: 12/24/22 21:12 Source: patient Mode of arrival: ambulatory Limitations: no limitations - History of Present Illness Initial comments: This patient is 37-year-old woman with history of previous aorto bifemoral bypass that had failure to the right side and resulted in right above-knee amputation. The patient states that she is not sure what had led to her arterial problem but she is maintained on Xarelto. She states that when she woke this morning her leg was feeling funny. She states that initially in the morning there was numbness and then later this afternoon and became pain and weakness. Family members noticed that the color was different and she presents to have evaluation. MD Complaint: extremity pain, cold extremity Onset/Timin -: hour(s) Location: left, lower extremity History of Same: No Quality: aching Consistency: constant Improves with: nothing Worsens with: nothing - Related Data Home Medications Medication Instructions Recorded Confirmed Rivaroxaban [Xarelto] 15 mg PO BID-W/MEALS 08/03/22 12/24/22 methocarbamoL [Methocarbamol] 750 mg PO QID 08/03/22 12/24/22 Famotidine 20 mg PO DAILY 10/30/22 12/24/22 Spironolactone 50 mg PO BID 10/30/22 12/24/22 oxyCODONE-APAP 10-325MG [Percocet 1 tab PO Q6H PRN 10/30/22 12/24/22 10-325 mg] Budesonide/Formoterol Fumarate 2 puff INHALATION RT-BID 12/03/22 12/24/22 [Symbicort 160-4.5 Mcg Inhaler] Sertraline [Zoloft] 100 mg PO BID 12/03/22 12/24/22 Tiotropium 2.5 Mcg/Puff [Spiriva 1 puff INHALATION RT-DAILY 12/03/22 12/24/22 Respimat 2.5 Mcg] Gabapentin 800 mg PO QID 12/24/22 12/24/22 Previous Rx's Medication Instructions Recorded Atorvastatin [Lipitor] 80 mg PO DAILY 90 Days #90 tab 08/13/22 Allergies Allergy/AdvReac Type Severity Reaction Status Date / Time No Known Allergies Allergy Verified 12/24/22 22:39 Review of Systems ROS Statement: Those systems with pertinent positive or pertinent negative responses have been documented in the HPI. ROS Other: All systems not noted in ROS Statement are negative. Constitutional: Denies: fever, chills Respiratory: Denies: cough, dyspnea Cardiovascular: Denies: chest pain, palpitations, edema Gastrointestinal: Denies: abdominal pain, vomiting, diarrhea Genitourinary: Denies: dysuria, hematuria Musculoskeletal: Denies: back pain Skin: Reports: change in color (Left leg is dusky ). Denies: rash Neurological: Reports: weakness, numbness, paresthesias, other (To the left leg). Denies: headache Psychiatric: Denies: anxiety Past Medical History Past Medical History: Deep Vein Thrombosis (DVT) History of Any Multi-Drug Resistant Organisms: None Reported Past Surgical History: Tonsillectomy, Tubal Ligation Additional Past Surgical History / Comment(s): Right AKA Past Anesthesia/Blood Transfusion Reactions: No Reported Reaction Past Psychological History: No Psychological Hx Reported Smoking Status: Current every day smoker, Former smoker Past Alcohol Use History: None Reported Past Drug Use History: None Reported - Past Family History Mother Family Medical History: No Reported History Father Additional Family Medical History / Comment(s): heart disease, Parkinson's disease. General Exam Limitations: no limitations General appearance: alert, in no apparent distress Head exam: Present: atraumatic, normocephalic Eye exam: Present: normal appearance. Absent: scleral icterus, conjunctival injection Neck exam: Present: normal inspection Respiratory exam: Present: normal lung sounds bilaterally. Absent: respiratory distress, wheezes, rales, rhonchi, stridor Cardiovascular Exam: Present: regular rate, normal rhythm, normal heart sounds. Absent: systolic murmur, diastolic murmur, rubs, gallop GI/Abdominal exam: Present: soft. Absent: distended, tenderness, guarding, r ebound, rigid, mass Extremities exam: Present: normal inspection, normal capillary refill. Absent: pedal edema, calf tenderness Back exam: Present: normal inspection. Absent: CVA tenderness (R), CVA tenderness (L) Neurological exam: Present: alert Skin exam: Present: warm, dry, rash, cyanosis (Left lower extremity). Absent: normal color Course Vital Signs 12/24/22 12/24/22 12/25/22 20:49 22:01 01:05 Temperature 98.4 F Pulse Rate 109 H 101 H 92 Respiratory 18 20 18 Rate Blood Pressure 146/74 141/78 139/82 O2 Sat by Pulse 98 98 97 Oximetry Medical Decision Making - Medical Decision Making This patient is a 37-year-old woman with history of previous aortobifemoral bypass who is in with onset of symptoms of arterial insufficiency to the left leg. After the patient is seen she is sent for computed tomography scan of the aorta without flow. I interpret this as showing what appears to be occlusion to the bypass. There also does appear to be thrombus in the popliteal artery. I discussed the case with Dr. Bernardo who is covering for vascular surgery. She is slightly familiar with the patient from [facility] and she states that patient's comp given surgical history requires that she go back to Dr. Hoffman there. The case is discussed with the transfer team, and they did discuss with the ER physician Dr. Schmid who will accept transfer. I also did receive call from the radiologist about the computed tomography scan. Was pt. sent in by a medical professional or institution (, PA, MANAGER WIRELESS, urgent care, hospital, or correction...) When possible be specific @ -[No] Did you speak to anyone other than the patient for history (EMS, parent, family, police, friend...)? What history was obtained from this source @ -[Family is present and does give history as well as the patient Did you review nursing and triage notes (agree or disagree)? Why? @ -[I reviewed and agree with nursing and triage notes] Were old charts reviewed (outside hosp., previous admission, EMS record, old EKG, old radiological studies, urgent care reports/EKG's, correction records)? Report findings @ -old charts were reviewed] Differential Diagnosis (chest pain, altered mental status, abdominal pain women, abdominal pain men, vaginal bleeding, weakness, fever, dyspnea, syncope, headache, dizziness, GI bleed, back pain, seizure, CVA, palpatations, mental health, musculoskeletal)? @ -[Differential diagnosis of the patient's leg pain included arterial insufficiency, DVT, radicular pain, amongst other conditions EKG interpreted by me (3pts min.). @ -[As above] X-rays interpreted by me (1pt min.). @ -[None done] CT interpreted by me (1pt min.). @ -[As above U/S interpreted by me (1pt. min.). @ -[None done] What testing was considered but not performed or refused? (CT, X-rays, U/S, labs)? Why? @ -[None] What meds were considered but not given or refused? Why? @ -[None] Did you discuss the management of the patient with other professionals (professionals i.e. , PA, MANAGER WIRELESS, lab, RT, psych nurse, outreach and education social worker, field hockey coach, teacher, fundraising officer, major case detective)? Give summary @ -[I discussed the case with the vascular surgeon on-call, see note above Was smoking cessation discussed for >3mins.? @ -[No] Was critical care preformed (if so, how long)? @ -[Yes 35 minutes Were there social determinants of health that impacted care today? How? (Homelessness, low income, unemployed, alcoholism, drug addiction, trans portation, low edu. Level, literacy, decrease access to med. care, residential, rehab)? @ -[No] Was there de-escalation of care discussed even if they declined (Discuss DNR or withdrawal of care, Hospice)? DNR status @ -[No] What co-morbidities impacted this encounter? (DM, HTN, Smoking, COPD, CAD, Cancer, CVA, ARF, Chemo, Hep., AIDS, mental health diagnosis, sleep apnea, morbid obesity)? @ -[Vasculopathy Was patient admitted / discharged? Hospital course, mention meds given and route, prescriptions, significant lab abnormalities, going to OR and other pertinent info. @ -[The patient transferred to have vascular surgery care from her vascular surgeon Undiagnosed new problem with uncertain prognosis? @ -[No] Drug Therapy requiring intensive monitoring for toxicity (Heparin, Nitro, Insulin, Cardizem)? @ -[Heparin Were any procedures done? @ -[No] Diagnosis/symptom? @ -[Acute bypass graft occlusion. Acute popliteal artery thrombosis Acute, or Chronic, or Acute on Chronic? @ -[default] Uncomplicated (without systemic symptoms) or Complicated (systemic symptoms)? @ -[Complicated Side effects of treatment? @ -[No] Exacerbation, Progression, or Severe Exacerbation? @ -[No] Poses a threat to life or bodily function? How? (Chest pain, [place], [place], pneumonia, PE, COPD, DKA, ARF, appy, cholecystitis, CVA, Diverticulitis, Homicidal, Suicidal, threat to staff... and all critical care pts) @ -[Yes the arterial occlusion is limited threatening - Lab Data Result diagrams: 12/24/22 21:22 12/24/22 21:22 Lab Results 12/24/22 12/24/22 12/24/22 Range/Units 21:22 21:22 21:22 WBC 21.1 H (3.8-10.6) k/uL RBC 4.66 (3.80-5.40) m/uL Hgb 13.9 (11.4-16.0) gm/dL Hct 42.3 (34.0-46.0) % MCV 90.8 (80.0-100.0) fL MCH 29.9 (25.0-35.0) pg MCHC 32.9 (31.0-37.0) g/dL RDW 14.5 (11.5-15.5) % Plt Count 365 (150-450) k/uL MPV 8.2 Neutrophils % 80 % Lymphocytes % 15 % Monocytes % 3 % Eosinophils % 1 % Basophils % 0 % Neutrophils # 16.9 H (1.3-7.7) k/uL Lymphocytes # 3.1 (1.0-4.8) k/uL Monocytes # 0.7 (0-1.0) k/uL Eosinophils # 0.1 (0-0.7) k/uL Basophils # 0.0 (0-0.2) k/uL PT 10.7 (9.0-12.0) sec INR 1.0 (<1.2) APTT 24.8 (22.0-30.0) sec Sodium 134 L (137-145) mmol/L Potassium 4.7 (3.5-5.1) mmol/L Chloride 103 (98-107) mmol/L Carbon Dioxide 21 L (22-30) mmol/L Anion Gap 10 mmol/L BUN 13 (7-17) mg/dL Creatinine 0.49 L (0.52-1.04) mg/dL Est GFR (CKD-EPI)AfAm >90 (>60 ml/min/1.73 sqM) Est GFR (CKD-EPI)NonAf >90 (>60 ml/min/1.73 sqM) Glucose 138 H (74-99) mg/dL Plasma Lactic Acid Charly (0.7-2.0) mmol/L Calcium 9.4 (8.4-10.2) mg/dL Total Bilirubin 0.8 (0.2-1.3) mg/dL AST 29 (14-36) U/L ALT 26 (4-34) U/L Alkaline Phosphatase 95 (38-126) U/L C-Reactive Protein 0.9 (<1.0) mg/dL Total Protein 7.4 (6.3-8.2) g/dL Albumin 4.2 (3.5-5.0) g/dL 12/24/22 Range/Units 21:22 WBC (3.8-10.6) k/uL RBC (3.80-5.40) m/uL Hgb (11.4-16.0) gm/dL Hct (34.0-46.0) % MCV (80.0-100.0) fL MCH (25.0-35.0) pg MCHC (31.0-37.0) g/dL RDW (11.5-15.5) % Plt Count (150-450) k/uL MPV Neutrophils % % Lymphocytes % % Monocytes % % Eosinophils % % Basophils % % Neutrophils # (1.3-7.7) k/uL Lymphocytes # (1.0-4.8) k/uL Monocytes # (0-1.0) k/uL Eosinophils # (0-0.7) k/uL Basophils # (0-0.2) k/uL PT (9.0-12.0) sec INR (<1.2) APTT (22.0-30.0) sec Sodium (137-145) mmol/L Potassium (3.5-5.1) mmol/L Chloride (98-107) mmol/L Carbon Dioxide (22-30) mmol/L Anion Gap mmol/L BUN (7-17) mg/dL Creatinine (0.52-1.04) mg/dL Est GFR (CKD-EPI)AfAm (>60 ml/min/1.73 sqM) Est GFR (CKD-EPI)NonAf (>60 ml/min/1.73 sqM) Glucose (74-99) mg/dL Plasma Lactic Acid Charly 1.4 (0.7-2.0) mmol/L Calcium (8.4-10.2) mg/dL Total Bilirubin (0.2-1.3) mg/dL AST (14-36) U/L ALT (4-34) U/L Alkaline Phosphatase (38-126) U/L C-Reactive Protein (<1.0) mg/dL Total Protein (6.3-8.2) g/dL Albumin (3.5-5.0) g/dL Critical Care Time Critical Care Time: Yes (35 minutes) Disposition Clinical Impression: Aortobifemoral bypass graft thrombosis, Arterial insufficiency of lower extremity Disposition: OTHER INSTITUTION NOT DEFINED Condition: Serious Is patient prescribed a controlled substance at d/c from ED?: No Referrals: Tio Peters MD [Primary Care Provider] - 1-2 days - Out of Hospital Transfer - Req. Specs Out of Hospital Transfer - Requested Specifics: Other Emergency Center ([facility])
[2022-12-24 21:51] LABS: Basophils % (A) 0 %; Eosinophils # (A) 0.1 k/uL (0-0.7); Eosinophils % (A) 1 %; HCT 42.3 % (34.0-46.0); HGB 13.9 gm/dL (11.4-16.0); Lymphocytes # (A) 3.1 k/uL (1.0-4.8); Lymphocytes % (A) 15 %; MCH 29.9 pg (25.0-35.0); MCHC 32.9 g/dL (31.0-37.0); MCV 90.8 fL (80.0-100.0); Mean Platelet Volume 8.2; Monocytes # (A) 0.7 k/uL (0-1.0); Monocytes % (A) 3 %; Neutrophils # (A) 16.9 k/uL (1.3-7.7); Neutrophils % (A) 80 %; Platelet Count 365 k/uL (150-450); RBC 4.66 m/uL (3.80-5.40); RDW 14.5 % (11.5-15.5); WBC 21.1 k/uL (3.8-10.6)
[2022-12-24 21:59] LABS: Partial Thromboplastin Time 24.8 sec (22.0-30.0); Prothrombin Time 10.7 sec (9.0-12.0)
[2022-12-24 22:18] LABS: ALT 26 U/L (4-34); AST 29 U/L (14-36); African American GFR (CKD) >90 (>60 ml/min/1.73 sqM); Albumin 4.2 g/dL (3.5-5.0); Alkaline Phosphatase 95 U/L (38-126); Anion Gap 10 mmol/L; Blood Urea Nitrogen 13 mg/dL (7-17); C Reactive Protein 0.9 mg/dL (<1.0); Calcium 9.4 mg/dL (8.4-10.2); Carbon Dioxide 21 mmol/L (22-30); Chloride 103 mmol/L (98-107); Non-African American GFR(CKD) >90 (>60 ml/min/1.73 sqM); Potassium 4.7 mmol/L (3.5-5.1); Sodium 134 mmol/L (137-145); Total Bilirubin 0.8 mg/dL (0.2-1.3); Total Protein 7.4 g/dL (6.3-8.2)
[2022-12-24 22:19] LABS: Glucose 138 mg/dL (74-99)
[2022-12-24] MEDS ORDERED: HYDROmorphone 0.5 MG/0.5 ML SYRINGE IVP STA (22:29)
[2022-12-24] MEDS ORDERED: HEPARIN SODIUM 1,000 UN/ML (10ML VL) IV PRN (23:13)
[2022-12-24] MEDS ORDERED: HEPARIN SODIUM 1,000 UN/ML (10ML VL) IV ONE (23:13)
[2022-12-24] MEDS ORDERED: HEPARIN SOD,PORK IN 0.45% NACL 25,000 UNIT in 0.45% NACL 1 250ML.BAG IV SCH (23:15)
--- NOTE | 2022-12-24 23:16 | CT ---
EXAM: CT Angiography Abdomen and Pelvis With Runoff to the Lower Extremities Without and With Intravenous Contrast CLINICAL HISTORY: L leg cyanosis TECHNIQUE: Axial computed tomographic angiography images of the abdomen, pelvis and lower extremities without and with intravenous contrast. CTDI is 34. 8 mGy and DLP is 3134.2 mGy-cm. This CT exam was performed using one or more of the following dose reduction techniques: automated exposure control, adjustment of the mA and/or kV according to patient size, and/or use of iterative reconstruction technique. MIP reconstructed images were created and reviewed. COMPARISON: CTA left lower extremity dated 12/04/2022 FINDINGS: VASCULATURE: Aorta: The previously noted aortoiliac bypass in a piggyback fashion from the distal anterior aorta is now occluded, new from the previous examination. The suprarenal aorta and infrarenal aorta are patent to the level of the aortic bypass. No inflow stenosis identified. No abdominal aortic aneurysm. No dissection. Celiac trunk and mesenteric arteries: No acute findings. No occlusion or significant stenosis. Renal arteries: No acute findings. No occlusion or significant stenosis. Right iliac arteries: The right common iliac artery and external iliac artery remain occluded, stable. The previously noted reconstitution of the right internal iliac artery remains. Right femoral/popliteal arteries: Right sided small-caliber profunda femoral branches are patent. A small-caliber right superficial femoral artery is patent. The right common femoral artery remains occluded. Right calf/foot arteries: No acute findings. No occlusion or significant stenosis. Left iliac arteries: The [place] left common iliac artery remains occluded. The proximal and mid left external iliac artery, previously patent, are now occluded with reconstitution of the distal left external iliac artery. The left proximal internal iliac artery is now occluded with the mid to distal internal iliac artery reconstituted and patent. Left femoral/popliteal arteries: There is a focal short segment filling defect in the proximal left profunda femoral branches with reconstitution. This is stable in appearance from the previous examination. There is abrupt termination of the left popliteal artery above the knee joint. The left popliteal artery remains occluded throughout its course. Left calf/foot arteries: There is proximal reconstitution of the left posterior tibial artery which remains patent and extends below the ankle joint. The left anterior tibial and posterior tibial arteries are not identified and are presumed occluded. Lung bases: Unremarkable. No mass. No consolidation. ABDOMEN: Liver: Unremarkable. No mass. Gallbladder and bile ducts: Unremarkable. No calcified stones. No ductal dilation. Pancreas: Unremarkable. No ductal dilation. No mass. Spleen: Unremarkable. No splenomegaly. Adrenals: Unremarkable. No mass. Kidneys and ureters: Unremarkable. No obstructing stones. No hydronephrosis. No solid mass. Stomach and bowel: Unremarkable. No obstruction. No mucosal thickening. PELVIS: Appendix: A normal caliber appendix is noted posterior to the cecum. Bladder: Unremarkable. No stones. No mass. Reproductive: Uterus and adnexa are not significantly altered from the previous examination. ABDOMEN, PELVIS and LOWER EXTREMITIES: Intraperitoneal space: Unremarkable. No significant fluid collection. No free air. Bones/joints: A right above-knee amputation is noted. Soft tissues: Unremarkable. Lymph nodes: Unremarkable. No enlarged lymph nodes. IMPRESSION: 1. The previously noted aortoiliac bypass in a piggyback fashion from the distal anterior aorta is now occluded, new from the previous examination. 2. There is abrupt termination of the left popliteal artery above the knee joint. The left popliteal artery remains occluded throughout its course. 3. There is proximal reconstitution of the left posterior tibial artery which remains patent and extends below the ankle joint. The left anterior tibial and posterior tibial arteries are not identified and are presumed occluded. 4. The suprarenal aorta and infrarenal aorta are patent to the level of the aortic bypass. No inflow stenosis identified. 5. The [place] left common iliac artery remains occluded. The proximal and mid left external iliac artery, previously patent, are now occluded with reconstitution of the distal left external iliac artery. 6. There is a focal short segment filling defect in the proximal left profunda femoral branches with reconstitution. This is stable in appearance from the previous examination. Findings are suspicious for narrowing or chronic atheromatous material. 7. For findings regarding the right lower extremity, please see the body of the report. Right AKA amputation again noted. <MYCVCSECTION> Communications: 12/24/22 23:20 Call Doctor Regarding Above results, called Dr. BOATENG on 12/24 23:19 (-04:00)
[2022-12-24] MEDS ORDERED: HYDROmorphone 1 MG/ML 1 ML SYRINGE IVP STA (23:25)
[2022-12-25] MEDS ORDERED: HYDROmorphone 0.5 MG/0.5 ML SYRINGE IVP STA (01:01)
[2022-12-25 01:06] VITALS: BP 139/82; PULSE 92; RESP 18; TEMP 98.4
== END 2022-12-25 01:21 | disposition other institution (70) ==
LOC: EC 20:31
DX: T82.868A Thrombosis due to vascular prosthetic devices, implants and grafts, initial encounter (principal); I82.439 Acute embolism and thrombosis of unspecified popliteal vein; Z86.718 Personal history of other venous thrombosis and embolism; F17.200 Nicotine dependence, unspecified, uncomplicated; Z79.899 Other long term (current) drug therapy; Z79.01 Long term (current) use of anticoagulants
CPT/HCPCS: 36415; 80053; 83605; 85025; 85610; 85730; 86140; 75635; 99291; 96365; 96366; 96375 ×2; 96376 ×2; J2270; J1644 ×2; J1170 ×3; Q9967

== ENCOUNTER 2023-02-19 16:53 | Emergency (ER) | payer OTHER ==
[2023-02-19] MEDS ORDERED: MORPHINE SULFATE 4 MG/ML SYRINGE IV STA ×2 (17:14→19:59)
--- NOTE | 2023-02-19 17:43 | ED ---
General Adult HPI - General Chief complaint: Recheck/Abnormal Lab/Rx Stated complaint: L leg wound Time Seen by Provider: 02/19/23 17:05 Source: patient Mode of arrival: ambulatory Limitations: no limitations - History of Present Illness Initial comments: This patient is a 37-year-old woman who presents to have evaluation of bleeding from site of her left leg above knee amputation. Patient states that the surgery was performed on January 05. She had arterial occlusion which was not able to be resolved. Surgery was at [facility]. Patient states that the surgical site was bumped and then she noticed that there was significant bleeding. Patient also complains of pain to the leg. She denies symptoms of anemia, no chest pain, palpitations, dyspnea, syncopal episodes. -: minutes(s) Location: left, lower extremity Quality: aching Consistency: constant Improves with: none Worsens with: none Associated Symptoms: denies other symptoms - Related Data Home Medications Medication Instructions Recorded Confirmed methocarbamoL [Methocarbamol] 750 mg PO QID@00,08,,08/03/22 02/19/23 Famotidine 20 mg PO BID@0800,2100 10/30/22 02/19/23 Spironolactone 50 mg PO BID@0800,1800 10/30/22 02/19/23 oxyCODONE-APAP 10-325MG [Percocet 1 tab PO Q4H PRN 10/30/22 02/19/23 10-325 mg] Gabapentin 800 mg PO QID@00,08,12,18 12/24/22 02/19/23 Acetaminophen Tab [Tylenol] 975 mg PO TID@0800,1400,2200 02/19/23 02/19/23 Amino Acids/Protein Hydrolys 30 ml PO BID@1200,209902/19/23 02/19/23 [Pro-Stat Awc Liquid] Amitriptyline HCl [Elavil] 10 mg PO HS@209902/19/23 02/19/23 Atorvastatin [Lipitor] 80 mg PO HS@209902/19/23 02/19/23 Betamethasone Dipropionate 1 applic TOPICAL BID PRN 02/19/23 02/19/23 [Diprolene AF 0.05% Cream] Betamethasone Dipropionate 1 applic TOPICAL BID@1200,209902/19/23 02/19/23 [Diprolene AF 0.05% Cream] Ibuprofen [Motrin] 800 mg PO TID@0800,1400,2200 02/19/23 02/19/23 Insulin Lispro [humaLOG Kwikpen] See Protocol SQ TID@1200,1800,2100 02/19/23 02/19/23 Lidocaine [Aspercreme Patch] 1 patch TRANSDERM DAILY@0800 02/19/23 02/19/23 Melatonin 10 mg PO HS PRN 02/19/23 02/19/23 Rivaroxaban [Xarelto] 20 mg PO HS@2100 02/19/23 02/19/23 Sertraline [Zoloft] 50 mg PO DAILY@0800 02/19/23 02/19/23 fentaNYL 25MCG/HR PATCH [Duragesic 1 patch TRANSDERM Q72H 02/19/23 02/19/23 25MCG/HR] Allergies Allergy/AdvReac Type Severity Reaction Status Date / Time No Known Allergies Allergy Verified 02/19/23 19:40 Review of Systems ROS Statement: Those systems with pertinent positive or pertinent negative responses have been documented in the HPI. ROS Other: All systems not noted in ROS Statement are negative. Constitutional: Denies: fever, chills Respiratory: Denies: dyspnea Cardiovascular: Denies: chest pain, palpitations, syncope Gastrointestinal: Denies: abdominal pain, vomiting Musculoskeletal: Reports: as per HPI, myalgia. Denies: back pain Skin: Denies: rash Neurological: Denies: headache, weakness Hematological/Lymphatic: Denies: easy bleeding Past Medical History Past Medical History: Deep Vein Thrombosis (DVT) History of Any Multi-Drug Resistant Organisms: None Reported Past Surgical History: Tonsillectomy, Tubal Ligation Additional Past Surgical History / Comment(s): Right AKA Past Anesthesia/Blood Transfusion Reactions: No Reported Reaction Past Psychological History: No Psychological Hx Reported Smoking Status: Current every day smoker, Former smoker Past Alcohol Use History: None Reported Past Drug Use History: None Reported - Past Family History Mother Family Medical History: No Reported History Father Additional Family Medical History / Comment(s): heart disease, Parkinson's disease. General Exam Limitations: no limitations General appearance: alert Head exam: Present: atraumatic Eye exam: Present: normal appearance, other (No pallor) ENT exam: Present: other (No patellar) Neck exam: Present: normal inspection Respiratory exam: Present: normal lung sounds bilaterally. Absent: respiratory distress, wheezes, rales, rhonchi, stridor Cardiovascular Exam: Present: regular rate, normal rhythm, normal heart sounds. Absent: systolic murmur, diastolic murmur, rubs, gallop GI/Abdominal exam: Present: soft. Absent: tenderness Extremities exam: Present: other (The patient does have 1 small area of dehiscence to her surgical incision (1cm). There is no current bleeding. I was not able to express any further blood.) Neurological exam: Present: alert Skin exam: Present: warm, dry, intact, normal color. Absent: pallor Course Vital Signs 02/19/23 02/19/23 17:06 20:48 Temperature 98 F 98.0 F Pulse Rate 90 88 Respiratory 18 16 Rate Blood Pressure 153/72 107/64 O2 Sat by Pulse 98 99 Oximetry Medical Decision Making - Medical Decision Making Patient's 37-year-old woman here to have evaluation of bleeding from the site of her above-knee amputation. The patient did have small amount of bloody drainage on the bandage. This was removed and observed with no further bleeding in the department. Was pt. sent in by a medical professional or institution (, PA, TRUCKING CONTRACTOR, urgent care, hospital, or fci...) When possible be specific @ -[No] Did you speak to anyone other than the patient for history (EMS, parent, family, police, friend...)? What history was obtained from this source @ -[No] Did you review nursing and triage notes (agree or disagree)? Why? @ -[I reviewed and agree with nursing and triage notes] Were old charts reviewed (outside hosp., previous admission, EMS record, old EKG, old radiological studies, urgent care reports/EKG's, fci records)? Report findings @ -[old charts were reviewed] Differential Diagnosis (chest pain, altered mental status, abdominal pain women, abdominal pain men, vaginal bleeding, weakness, fever, dyspnea, syncope, headache, dizziness, GI bleed, back pain, seizure, CVA, palpatations, mental health, musculoskeletal)? @ -Differential diagnosis includes postoperative bleeding, drainage of hematoma, coagulopathy, trauma, wound dehiscence amongst other conditions EKG interpreted by me (3pts min.). @ -[ X-rays interpreted by me (1pt min.). @ -[None done] CT interpreted by me (1pt min.). @ -[None done] U/S interpreted by me (1pt. min.). @ -[None done] What testing was considered but not performed or refused? (CT, X-rays, U/S, labs)? Why? @ -[None] What meds were considered but not given or refused? Why? @ -[None] Did you discuss the management of the patient with other professionals (professionals i.e. , PA, TRUCKING CONTRACTOR, lab, RT, psych nurse, social media content manager, site promotion agent, teacher, penal officer, case management coordinator)? Give summary @ -[No] Was smoking cessation discussed for >3mins.? @ -[No] Was critical care preformed (if so, how long)? @ -[No] Were there social determinants of health that impacted care today? How? (Homelessness, low income, unemployed, alcoholism, drug addiction, transportation, low edu. Level, literacy, decrease access to med. care, senior care, rehab)? @ -[No] Was there de-escalation of care discussed even if they declined (Discuss DNR or withdrawal of care, Hospice)? DNR status @ -[No] What co-morbidities impacted this encounter? (DM, HTN, Smoking, COPD, CAD, Ca ncer, CVA, ARF, Chemo, Hep., AIDS, mental health diagnosis, sleep apnea, morbid obesity)? @ -[Anticoagulant use Was patient admitted / discharged? Hospital course, mention meds given and route, prescriptions, significant lab abnormalities, going to OR and other pertinent info. @ -[See above Undiagnosed new problem with uncertain prognosis? @ -[No] Drug Therapy requiring intensive monitoring for toxicity (Heparin, Nitro, Insulin, Cardizem)? @ -[No] Were any procedures done? @ -[No] Diagnosis/symptom? @ -[Acute postoperative bleeding Acute, or Chronic, or Acute on Chronic? @ -[Acute Uncomplicated (without systemic symptoms) or Complicated (systemic symptoms)? @ -[Uncomplicated Side effects of treatment? @ -[No] Exacerbation, Progression, or Severe Exacerbation? @ -[No] Poses a threat to life or bodily function? How? (Chest pain, [place], [place], pneumonia, PE, COPD, DKA, ARF, appy, cholecystitis, CVA, Diverticulitis, Homicidal, Suicidal, threat to staff... and all critical care pts) @ -[No] - Lab Data Result diagrams: 02/19/23 17:52 02/19/23 17:52 Lab Results 02/19/23 02/19/23 02/19/23 Range/Units 17:52 17:52 17:52 WBC 9.2 (3.8-10.6) k/uL RBC 4.01 (3.80-5.40) m/uL Hgb 11.8 (11.4-16.0) gm/dL Hct 36.9 (34.0-46.0) % MCV 92.1 (80.0-100.0) fL MCH 29.5 (25.0-35.0) pg MCHC 32.1 (31.0-37.0) g/dL RDW 15.3 (11.5-15.5) % Plt Count 431 (150-450) k/uL MPV 7.7 Neutrophils % 65 % Lymphocytes % 28 % Monocytes % 3 % Eosinophils % 3 % Basophils % 0 % Neutrophils # 6.0 (1.3-7.7) k/uL Lymphocytes # 2.5 (1.0-4.8) k/uL Monocytes # 0.3 (0-1.0) k/uL Eosinophils # 0.2 (0-0.7) k/uL Basophils # 0.0 (0-0.2) k/uL PT 9.5 (9.0-12.0) sec INR 0.9 (<1.2) APTT 25.5 (22.0-30.0) sec Sodium 137 (137-145) mmol/L Potassium 4.5 (3.5-5.1) mmol/L Chloride 104 (98-107) mmol/L Carbon Dioxide 25 (22-30) mmol/L Anion Gap 8 mmol/L BUN 21 H (7-17) mg/dL Creatinine 0.59 (0.52-1.04) mg/dL Est GFR (CKD-EPI)AfAm >90 (>60 ml/min/1.73 sqM) Est GFR (CKD-EPI)NonAf >90 (>60 ml/min/1.73 sqM) Glucose 123 H (74-99) mg/dL Calcium 9.2 (8.4-10.2) mg/dL Total Bilirubin 0.5 (0.2-1.3) mg/dL AST 25 (14-36) U/L ALT 22 (4-34) U/L Alkaline Phosphatase 106 (38-126) U/L Total Protein 7.1 (6.3-8.2) g/dL Albumin 4.0 (3.5-5.0) g/dL Disposition Clinical Impression: Encounter for wound re-check Disposition: HOME SELF-CARE Condition: Good Instructions (If sedation given, give patient instructions): Chronic Wound Care (ED) Is patient prescribed a controlled substance at d/c from ED?: No Referrals: Tio Peters MD [Primary Care Provider] - 1-2 days
[2023-02-19 18:01] LABS: Basophils % (A) 0 %; Eosinophils # (A) 0.2 k/uL (0-0.7); Eosinophils % (A) 3 %; HCT 36.9 % (34.0-46.0); HGB 11.8 gm/dL (11.4-16.0); Lymphocytes # (A) 2.5 k/uL (1.0-4.8); Lymphocytes % (A) 28 %; MCH 29.5 pg (25.0-35.0); MCHC 32.1 g/dL (31.0-37.0); MCV 92.1 fL (80.0-100.0); Mean Platelet Volume 7.7; Monocytes # (A) 0.3 k/uL (0-1.0); Monocytes % (A) 3 %; Neutrophils % (A) 65 %; Platelet Count 431 k/uL (150-450); RBC 4.01 m/uL (3.80-5.40); RDW 15.3 % (11.5-15.5); WBC 9.2 k/uL (3.8-10.6)
[2023-02-19 18:42] LABS: ALT 22 U/L (4-34); AST 25 U/L (14-36); African American GFR (CKD) >90 (>60 ml/min/1.73 sqM); Alkaline Phosphatase 106 U/L (38-126); Anion Gap 8 mmol/L; Blood Urea Nitrogen 21 mg/dL (7-17); Calcium 9.2 mg/dL (8.4-10.2); Carbon Dioxide 25 mmol/L (22-30); Chloride 104 mmol/L (98-107); Glucose 123 mg/dL (74-99); Non-African American GFR(CKD) >90 (>60 ml/min/1.73 sqM); Potassium 4.5 mmol/L (3.5-5.1); Sodium 137 mmol/L (137-145); Total Bilirubin 0.5 mg/dL (0.2-1.3); Total Protein 7.1 g/dL (6.3-8.2)
[2023-02-19 19:01] LABS: INR 0.9 (<1.2); Partial Thromboplastin Time 25.5 sec (22.0-30.0); Prothrombin Time 9.5 sec (9.0-12.0)
[2023-02-19 20:49] VITALS: BP 107/64; PULSE 88; RESP 16; TEMP 98
== END 2023-02-19 20:43 | disposition home or self-care (01) ==
LOC: EC 16:53
DX: Z48.00 Encounter for change or removal of nonsurgical wound dressing (principal); F17.200 Nicotine dependence, unspecified, uncomplicated
CPT/HCPCS: 36415; 80053; 85025; 85610; 85730; 99284; 96374; 96376; J2270

== ENCOUNTER → 2023-07-01 | Outpatient (CLI) | payer OTHER ==
[2023-07-01 13:33] VITALS: BP 136/97; PULSE 91; RESP 16
--- NOTE | 2023-07-01 14:02 | P.PAINPG ---
PQRS Measure Charge Sheet Comment: A 37 yr old BL AKA wheelchair bound female w mother at side with a history of severe and chronic LBP secondary to lumbar DDD and spondylosis with facet arthropathy without myelopathy presents today for evaluation. Pain level is provoked at 9 /10 in intensity, predominantly axial, sharp in character w radiat ion of pain occasionally down the BLEs up to stumps. Pain is alleviated w injections, medications (Percocet 10/325mg #120, Neurontin 600mg #90, Robaxin), physician guided stretches daily since Jan 2023, heat, topical, use of a wheelchair for ambulatory assistance, repositioning and rest. Pt is a double above the knee amputee and can not participate in PT. Oswestry axial pain score of 28. Interventional pain procedures completed include JESSICA L5-S1 x1 Patient is currently on Percocet 10/325mg #120, Neurontin 600mg #90, Robaxin Patient denies any side effects of the medication(s), denies excessive drowsiness or sleepiness, denies suicidal ideation and reports that the current pain medication is helping to control the pain and improve activities of daily living. Patient denies any motor or sensory deficits. Patient denies any fever or night sweats, denies any change in the bowel movements or urination. Physical Examination: -Constitutional: Cooperative. Not in acute distress . - Neurologic: Cranial nerve II to XII intact. No focal neurological deficits. - Psychatric: Alert & oriented x 3. Matching mood & appropriate affect. Judgment and insight intact. - Musculoskeletal: Cervical spine: Muscle bulk/ tone/ strength in the bilateral upper extremities normal Vertebral body tenderness to palpation over Spurling test positive Distraction test positive Facet loading test positive TTP Thoracic spine Muscle bulk / tone/ strength in the bilateral paraspinal muscles normal Vertebral body tender to palpation over Facet loading test positive TTP Lumbar spine: Motor bulk/ tone/ strength lower extremities , thigh and legs : 5/5 Deep tendon reflexes : Normal Knee Jerk. Normal Ankle Jerk . Vertebral body tenderness to palpation over L5 Moore Test positive over BL L5-S1 Lumbar Facet Loading Test positive Straight Leg Raise: positive at 30 degrees right side/ left side Gaenslen's Test positive Sacral spine : Severe tenderness over the Sacroiliac joint: right side / left side Range of motion: Flexion of the lumbar spine <60 degrees Range of motion: Extension of the lumbar spine <20 degrees Gaenslen's Test positive right side / left side Thomas test: positive right side / left side Thigh Thrust Test positive right side / left side Sacral Thrust Test positive right side / left side Assessment and plan: Chronic LBP secondary to lumbar DDD, spondylosis with facet arthropathy without myelopathy Recommendation of JESSICA L5-S1 #1. May need a series of injections for optimal pain relief. Risks, benefits of procedure discussed and patient verbalized understanding. Protocol for discontinuation/continuation of medications surrounding procedure discussed. All questions answered. Recommendation of medication management. Percocet 10/325 mg #90 w 1 RF. Opiate/ narcotic agreement signed 07/01/23. Will check blood tox screen at next visit. I have spent less than 30 minutes on patient care today. Dr Melgar was available by phone for the evaluation of this patient. The time was used to review the medical records including relevant urine studies and Prescription history (MAPs), review of the available imaging, evaluation and examination of the patient, coordination of care with the medical staff and if applicable referring physicians, as well as creation of the medical record PQRS Narrative: Hx Alcohol Use (MH) No Home Medications: Ambulatory Orders methocarbamoL 750 mg PO QID 08/03/22 Famotidine 20 mg PO BID 10/30/22 Spironolactone 50 mg PO BID 10/30/22 Gabapentin 800 mg PO QID 12/24/22 Acetaminophen Tab [Tylenol] 975 mg PO TID PRN 02/19/23 Amitriptyline HCl [Elavil] 10 mg PO HS 02/19/23 Atorvastatin [Lipitor] 80 mg PO HS 02/19/23 Insulin Lispro [humaLOG Kwikpen] See Protocol SQ TID 02/19/23 Lidocaine [Aspercreme Patch] 1 patch TRANSDERM DAILY 02/19/23 Melatonin 10 mg PO HS PRN 02/19/23 Rivaroxaban [Xarelto] 20 mg PO HS 02/19/23 Sertraline [Zoloft] 50 mg PO DAILY 02/19/23 Budesonide [Pulmicort] 0.5 mg INHALATION RT-BID 02/28/23 Ibuprofen [Motrin] 600 mg PO Q8HR PRN 02/28/23 Acetaminophen Tab [Tylenol] 650 mg PO Q6HR PRN tab 03/08/23 Ipratropium-Albuterol Nebulize [Duoneb 0.5 mg-3 mg/3 ml Soln] 3 ml INHALATION BID each 03/08/23 Lidocaine 5% Patch [Lidoderm] 1 patch TOPICAL DAILY 30 Days #30 patch 03/08/23 Vancomycin 1,250 mg IVPB Q8H each 03/08/23 oxyCODONE-APAP 10-325MG [Percocet 10-325 mg] 1 tab PO Q8HR PRN 30 Days #90 tab 07/01/23 oxyCODONE-APAP 10-325MG [Percocet 10-325 mg] 1 tab PO TID PRN 30 Days #90 tab 07/01/23 Controlled Substance Measures - Controlled Substance Measures Is patient prescribed a controlled substance at discharge?: Yes When asked, does pt state using other controlled substances?: No If prescribed controlled substance>3 days was MAPS reviewed?: Yes If Rx opioid, was Start Talking consent form obtained?: Yes Was information provided regarding opioid addiction?: Yes
== END ==
LOC: PNWHC3 12:26
PROVIDERS: ATTEND Specialist
DX: M51.36 Other intervertebral disc degeneration, lumbar region (principal); M47.816 Spondylosis without myelopathy or radiculopathy, lumbar region; G89.29 Other chronic pain
CPT/HCPCS: 99211

== ENCOUNTER 2023-07-16 10:04 | Day surgery (SDC) | payer OTHER ==
[2023-07-11 14:39] VITALS: BMI 39.0
[~2023-07-16 10:04] MED LIST: LACTATED RINGERS 1,000 ML IV SCH
[2023-07-16 11:22] LABS: Glucose,Whole Blood 279 mg/dL (70-110)
[2023-07-16] MEDS ORDERED: INSULIN ASPART (NovoLOG) 100 UNIT/ML VIAL SQ ONE (11:25)
[2023-07-16] MEDS ORDERED: methylPREDNISolone ACETATE 40 MG/ML 1 ML VIAL ONE (11:34)
[2023-07-16] MEDS ORDERED: IOPAMIDOL M200 10 ML VIAL ONE (11:34)
--- NOTE | 2023-07-16 11:39 | P.PCN ---
Date of Procedure: 07/16/23 Procedure(s) Performed: PREOPERATIVE DIAGNOSIS: 1- Lumbar Degenerative Disc Diseases 2-Lumbar spondylosis with Facet arthropathy without myelopathy. POSTOPERATIVE DIAGNOSIS: 1-lumbar degenerative disc disease. 2-lumbar spondylosis with facet arthropathy without myelopathy. PROCEDURE 1. Lumbar epidural steroid injection under fluoroscopic guidance at the L5-S1 level. (Fluoroscopy imaging was available in radiology department) 2. Lumbar epidurogram. ANESTHESIA: Lidocaine 1% 3 and then only. EBL: Minimal PROCEDURE INDICATION: The patient with low back pain and radiculitis symptoms unresponsive to conservative treatment. Fluoroscopy was used to optimize visualization of the needle placement and to maximize safety. PROCEDURE DESCRIPTION / TECHNIQUE: The patient was seen and identified in the preoperative area. Risks, benefits, complications including but not limited to infections ,bleeding ,allergic reaction to the medications ,nerve damage and not complete pain releife , and alternatives were discussed with the patient. The patient agreed to proceed with the procedure and signed the consent, and vital signs were stable. Patient was taken to the OR and time out was completed. The patient was placed in the prone position on procedure table and a pillow was placed under the abdomen to reduce lumbar lordosis. The lumbosacral area was prepped and draped in the usual sterile fashion.ere closely monitored during the procedure. Vital signs was monitered during the entire procedure. Using anterior-posterior fluoroscopy, the L5-S1 interlaminar space was identified and the skin over this site was marked and then infiltrated with 1% lidocaine subcutaneously. Subsequently, a 20-gauge Tuohy epidural needle was inserted and advanced toward the epidural space using the ``Loss of resistance technique and guided by AP and lateral fluoroscopy. The correct needle position in the epidural space was verified with the injection of 2 mL of the water soluble contrast dye Isovue 200 contrast and observing an excellent epidurogram with the epidural spread of the dye, after negative aspiration for blood and CSF and in the absence of paresthesias. Again after negative aspiration, a 6 ml mixture containing 40 mg of Depo-medrol ( Preservetive Free ), and 2 ml of preservative free Normal Saline, and 2 ml of preservative free lidocaine 1% solution was injected and a washout of epidurogram was seen. Needle was withdrawn intact, skin was cleansed, and bandages were applied. COMPLICATIONS: None DISPOSITION / PLANS: The patient was placed in a supine position and transferred to the recovery area in a stable condition for observation. There was no ev idence of lower extremity motor or sensory deficit after the procedure. Patient was discharged from the recovery room after meeting discharge criteria. Home discharge instructions were given to the patient by the staff. The patient was reexamined prior to discharge. The patient will schedule a follow up in the clinic in 2-4 weeks.
[2023-07-16 11:40] VITALS: TEMP 97.8
[2023-07-16 11:53] LABS: Glucose,Whole Blood 283 mg/dL (70-110)
--- NOTE | 2023-07-16 11:54 | FL ---
EXAMINATION TYPE: FL guided pain mgmt statistic Intraoperative/procedural fluoroscopic services were provided. Total fluoroscopy time is 4.3 seconds with a total of 2 submitted images to PACS. Please se e the operative/procedural note for further details. DAP: [id number] [id number]
[2023-07-16 12:06] VITALS: RESP 14
[2023-07-16 12:31] VITALS: BP 142/85; PULSE 85
== END 2023-07-16 12:19 | disposition home or self-care (01) ==
LOC: ORPAIN 10:04
PROVIDERS: ATTEND Specialist
DX: M47.816 Spondylosis without myelopathy or radiculopathy, lumbar region (principal); M51.36 Other intervertebral disc degeneration, lumbar region; E11.9 Type 2 diabetes mellitus without complications; Z79.4 Long term (current) use of insulin
CPT/HCPCS: 81025; 62323; J1030; Q9966

== ENCOUNTER → 2023-07-29 | Outpatient (CLI) | payer OTHER ==
--- NOTE | 2023-07-29 15:03 | P.SLEEP ---
History of Present Illness DATE: 07/29/2023 CONSULTATION/NEW PATIENT EVALUATION HISTORY OF PRESENT ILLNESS/SLEEP-WAKE EVALUATION: 37 year old lady had been evaluated in the sleep center for difficulties to initiate sleep and possible obstructive sleep apnea hypopnea syndrome. SLEEP SCHEDULE: Usually sleep schedule presently patient goes to bed around m idnight but falling to sleep only about 5 AM and sleeps until 1-3 pm. FALLING ASLEEP: Patient has difficulties with falling asleep. DURING SLEEP: Patient wakes up from sleep up to 2 times without nocturia No history of hypnogogical hallucinations, sleep paralysis, or cataplexy. DURING THE DAY/WAKE STATE: []. Timbo sleepiness scale is 0. Patient doesn't take any naps. PAST MEDICAL HISTORY: Diabetes mellitus, acid reflux. PAST SURGICAL HISTORY: Status post bilateral above-knee amputation in 2022. MEDICATIONS: Pepcid, etc. L to 20 mg once a day, gabapentin 800 mg up to 4 times a day, insulin, Trulicity, methocarbamol. SOCIAL HISTORY: Negative for smoking, using alcohol. FAMILY HISTORY: Diabetes. REVIEW OF SYSTEMS: Difficulties to initiate sleep, awakenings from sleep. No fevers. No double vision. No recent chest pain. No shortness of breath. No abdominal pain. No bleeding episodes. No blood in urine. No seizure episodes. PHYSICAL EXAMINATION: GENERAL: A pleasant patient without any distress on wheelchair. VITAL SIGNS: BP 142/84 , HR 86 , RR 16 , weight estimated 200 pounds, height 5 foot 0 inches . HEENT: PERRLA, EOMI. Evaluation of oropharynx showed tongue protrudes midline, low position of soft palate Mallampati 4. NECK: Supple. No JVD. Thyroid is not palpable. 17-3/4 inches in circumference. LUNGS: Clear to percussion and to auscultation. Good air exchange. No wheezing or rhonchi. HEART: S1, S2 regular. No murmurs, gallops or rubs. ABDOMEN: Soft and nontender. Bowel sounds are present. No organomegaly appreciated. Obese EXTREMITIES: No clubbing or cyanosis. Status post bilateral above-knee amputation. BATTER DEPOSITOR: Awake, alert, and oriented x3. Cranial nerves 2 to 7 intact. ASSESSMENT: 1. Sleep delay syndrome. 2. Psychophysiological insomnia. 3. Awakenings from sleep, extremely low position of soft palate Mallampati 4, wide neck 17 and three-quarter inches in circumference. Obstructive sleep apnea-hypopnea syndrome. 4. Obesity. 5 diabetes mellitus. 6 . Status post bilateral above knee amputation. 7. Acid reflux. 8. Status post tonsillectomy. 9 . Status post tubal ligation. PLAN: 1. Home sleep apnea test for evaluation of patient's breathing during sleep. 2. As much as possible to use light after awakenings, patient may use light machine and is less as possible light in the evening to help to move sleep cycle to regular time. 3. Preferable position during sleep on the side. 4. I discussed with patient the psychological techniques for treatment of insomnia including steam is controlled, paradoxical intentioned 5. Sleep hygiene with regular sleep time for at least 7.5-8 hours. 6. Watching and losing weight. Thank you very much for referring this patient for consultation. Sincerely, Buster Toledo MD, PhD, FAASM. Diplomat of [employer], Sleep Medicine Board by [employer] Underwriting Assistant of [facility] Past Medical History Past Medical History: Diabetes Mellitus, Deep Vein Thrombosis (DVT), GERD/Reflux Additional Past Medical History / Comment(s): covid june 2022 History of Any Multi-Drug Resistant Organisms: MRSA Date of last positivie culture/infection: 02/28/23 MDRO Source:: Left Leg Past Surgical History: Tonsillectomy, Tubal Ligation Additional Past Surgical History / Comment(s): WENT IN FOR BACK SX WOKE UP WITH RT AKA R/T POOR CIRCULATION-NO BACK SX, LATER HAD LT AKA, PAIN CLINIC PROCEDURE Past Anesthesia/Blood Transfusion Reactions: No Reported Reaction Smoking Status: Former smoker - Past Family History Mother Family Medical History: No Reported History Father Family Medical History: No Reported History Additional Family Medical History / Comment(s): heart disease, Parkinson's disease. Medications and Allergies Home Medications Medication Instructions Recorded Confirmed Type methocarbamoL 750 mg PO QID 08/03/22 07/11/23 History Gabapentin 800 mg PO QID 12/24/22 07/11/23 History Insulin Lispro [humaLOG Kwikpen] See Protocol SQ TID 02/19/23 07/11/23 History Rivaroxaban [Xarelto] 20 mg PO HS 02/19/23 07/11/23 History oxyCODONE-APAP 10-325MG [Percocet 1 tab PO Q8HR PRN 30 Days #90 tab 07/01/23 07/11/23 Rx 10-325 mg] Dulaglutide [Trulicity] 1.5 mg SQ TH 07/11/23 07/11/23 History Insulin Glargine,Hum.rec.anlog 20 units SQ HS 07/11/23 07/11/23 History [Lantus Solostar Pen] Omeprazole 40 mg PO BID 07/11/23 07/11/23 History Allergies Allergy/AdvReac Type Severity Reaction Status Date / Time No Known Allergies Allergy Verified 07/16/23 11:31 Sleep Note - Sleep Note Sleep Note: Temperature: Pulse Rate: Respiratory Rate: Blood Pressure: SpO2: Height: Weight: BMI: Neck Circumference:
== END ==
LOC: 3 N SLEEP 13:54
PROVIDERS: ATTEND Internal Medicine
DX: G47.33 Obstructive sleep apnea (adult) (pediatric) (principal); F51.04 Psychophysiologic insomnia; E66.9 Obesity, unspecified; E11.9 Type 2 diabetes mellitus without complications; G47.21 Circadian rhythm sleep disorder, delayed sleep phase type; K21.9 Gastro-esophageal reflux disease without esophagitis; Z98.890 Other specified postprocedural states; Z90.89 Acquired absence of other organs; Z98.51 Tubal ligation status; Z79.4 Long term (current) use of insulin; Z79.85 Long-term (current) use of injectable non-insulin antidiabetic drugs
CPT/HCPCS: 99211

== ENCOUNTER → 2023-10-21 | Outpatient (CLI) | payer OTHER ==
[2023-10-22 06:38] LABS: Serum Amphetamine Negative; Serum Barbiturates Negative; Serum Benzodiazepine Negative; Serum Cocaine Negative; Serum Methadone Negative; Serum Opiates Negative; Serum Phencyclidine Negative; Serum Propoxyphene Negative; Serum THC (Cannabis) Negative
== END | disposition home or self-care (01) ==
LOC: LABWHC1 15:01
PROVIDERS: ATTEND Physician Assistant Medical
DX: Z02.82 Encounter for adoption services (principal)
CPT/HCPCS: 36415; 80307

== ENCOUNTER → 2023-10-21 | Outpatient (CLI) | payer OTHER ==
[2023-10-21 13:51] VITALS: BP 142/72; PULSE 76; RESP 15; TEMP 98.1
--- NOTE | 2023-10-21 14:18 | P.PAINPG ---
PQRS Measure Charge Sheet Comment: A 37 yr old BL AKA wheelchair bound female w mother at side with a history of severe and chronic LBP secondary to lumbar DDD and spondylosis with facet arthropathy without myelopathy presents today for medication refills. Pain level is provoked at 6 /10 in intensity, predominantly axial, sharp in character w radiation of pain occasionally down the BLEs up to stumps. Pain is alleviated w injections, medications, physician guided stretches daily since Jan 2023, heat, topical, use of a wheelchair for ambulatory assistance, repositioning and rest. Pt is a double above the knee amputee and can not participate in PT. Oswestry axial pain score of 28. Interventional pain procedures completed include JESSICA L5-S1 x1 Patient is currently on Percocet 10/325mg #120, Neurontin 600mg #90, Robaxin Patient denies any side effects of the medication(s), denies excessive drowsiness or sleepiness, denies suicidal ideation and reports that the current pain medication is helping to control the pain and improve activities of daily living. Patient denies any motor or sensory deficits. Patient denies any fever or night sweats, denies any change in the bowel movements or urination. Physical Examination: -Constitutional: Cooperative. Not in acute distress . - Neurologic: Cranial nerve II to XII intact. No focal neurological deficits. - Psychatric: Alert & oriented x 3. Matching mood & appropriate affect. Judgment and insight intact. - Musculoskeletal: Cervical spine: Muscle bulk/ tone/ strength in the bilateral upper extremities normal Vertebral body tenderness to palpation over Spurling test positive Distraction test positive Facet loading test positive TTP Thoracic spine Muscle bulk / tone/ strength in the bilateral paraspinal muscles normal Vertebral body tender to palpation over Facet loading test positive TTP Lumbar spine: Motor bulk/ tone/ strength lower extremities , thigh and legs : 5/5 Deep tendon reflexes : Normal Knee Jerk. Normal Ankle Jerk . Vertebral body tenderness to palpation over L5 Moore Test positive over BL L5-S1 Lumbar Facet Loading Test positive Straight Leg Raise: positive at 30 degrees right side/ left side Gaenslen's Test positive Sacral spine : Severe tenderness over the Sacroiliac joint: right side / left side Range of motion: Flexion of the lumbar spine <60 degrees Range of motion: Extension of the lumbar spine <20 degrees Gaenslen's Test positive right side / left side Thomas test: positive right side / left side Thigh Thrust Test positive right side / left side Sacral Thrust Test positive right side / left side Assessment and plan: Chronic LBP secondary to lumbar DDD, spondylosis with facet arthropathy without myelopathy Recommendation of L paramedian JESSICA L5-S1 #3. May need a series fo injections for optimal pain relief. Risks, benefits of procedure discussed and pt verbalized understanding. Protocol for discontinuation/ continuation of medications george procedure discussed. Recommendation of medication management. Percocet 10/325 mg #90 w 1 RF. Opiate/ narcotic agreement signed 07/01/23. Blood tox screen collected 08/26/23 NEG for medications prescribed. Will recheck Blood tox screen 10/21/23. Script provided and urged compliance about getting blood tox screen completed today. Pt acknowledged understanding. I have spent less than 30 minutes on patient care today. Dr Melgar was available by phone for the evaluation of this patient. The time was used to review the medical records including relevant urine studies and Prescription history (MAPs), review of the available imaging, evaluation and examination of the patient, coordination of care with the medical staff and if applicable referring physicians, as well as creation of the medical record PQRS Narrative: Narcotic Agreement Date Signed 07/01/23 Hx Alcohol Use (MH) No Home Medications: Ambulatory Orders methocarbamoL 750 mg PO QID 08/03/22 Gabapentin 800 mg PO QID 12/24/22 Insulin Lispro [humaLOG Kwikpen] See Protocol SQ TID 02/19/23 Rivaroxaban [Xarelto] 20 mg PO HS 02/19/23 Dulaglutide [Trulicity] 1.5 mg SQ TH 07/11/23 Insulin Glargine,Hum.rec.anlog [Lantus Solostar Pen] 20 units SQ HS 07/11/23 Omeprazole 40 mg PO BID 07/11/23 oxyCODONE-APAP 10-325MG [Percocet 10-325 mg] 1 tab PO Q8HR PRN 30 Days #90 tab 10/21/23 oxyCODONE-APAP 10-325MG [Percocet 10-325 mg] 1 tab PO TID PRN 30 Days #90 tab 10/21/23 Controlled Substance Measures - Controlled Substance Measures Is patient prescribed a controlled substance at discharge?: Yes When asked, does pt state using other controlled substances?: Yes If prescribed controlled substance>3 days was MAPS reviewed?: Yes
== END ==
LOC: PNWHC3 13:01
PROVIDERS: ATTEND Specialist
DX: M51.37 Other intervertebral disc degeneration, lumbosacral region (principal); M47.817 Spondylosis without myelopathy or radiculopathy, lumbosacral region; G89.29 Other chronic pain; Z79.01 Long term (current) use of anticoagulants
CPT/HCPCS: 99211

== ENCOUNTER → 2023-11-12 | Day surgery (SDC) | payer OTHER ==
[2023-11-12 13:31] VITALS: BP 180/80; PULSE 88; RESP 16; TEMP 96.8
[2023-11-12 13:54] LABS: Glucose,Whole Blood 350 mg/dL (70-110)
--- NOTE | 2023-11-12 14:00 | P.PN ---
Progress Note - Text Progress Note Date: 11/12/23 Patient was scheduled to have lumbar epidural steroid injection today, the preop holding area we checked her blood sugar it was 350, and reviewed that we going to give the steroid, will not be safe to proceed with the procedure, for this reason the procedure was canceled, and the patient will follow-up with ,the primary care, for evaluation and better management of her blood sugar.I Explained the risks to the patient and patient understood and she will follow-up with her primary care
== END ==
LOC: ORPAIN 12:56
PROVIDERS: ATTEND Specialist
DX: Z53.8 Procedure and treatment not carried out for other reasons (principal); M54.16 Radiculopathy, lumbar region
CPT/HCPCS: 84702

== ENCOUNTER → 2023-12-16 | Outpatient (CLI) | payer OTHER ==
[2023-12-16 12:39] VITALS: BP 164/98; PULSE 100; RESP 16
--- NOTE | 2023-12-16 15:02 | P.PAINPG ---
PQRS Measure Charge Sheet Comment: A 38 yr old BL AKA wheelchair bound female w mother at side with a history of severe and chronic LBP secondary to lumbar DDD and spondylosis with facet arthropathy without myelopathy presents today for medication refills. Her JESSICA was cancelled because of blood glucose at 350. Pt has had 2 tox screens (Aug 23, Sep 2023) which were both negative for medications prescribed. Pain level is provoked at 6 /10 in intensity, predominantly axial, sharp in character w radiation of pain occasionally down the BLEs up to stumps. Pain is alleviated w injections, medications, physician guided stretches daily since Jan 2023, heat, topical, use of a wheelchair for ambulatory assistance, repositioning and rest. Pt is a double above the knee amputee and can not participate in PT. Oswestry axial pain score of 28. Interventional pain procedures completed include JESSICA L5-S1 x1 Patient is currently on Percocet 10/325mg #120, Neurontin 600mg #90, Robaxin Patient denies any side effects of the medication(s), denies excessive drowsiness or sleepiness, denies suicidal ideation and reports that the current pain medication is helping to control the pain and improve activities of daily living. Patient denies any motor or sensory deficits. Patient denies any fever or night sweats, denies any change in the bowel movements or urination. Physical Examination: -Constitutional: Cooperative. Not in acute distress . - Neurologic: Cranial nerve II to XII intact. No focal neurological deficits. - Psychatric: Alert & oriented x 3. Matching mood & appropriate affect. Judgment and insight intact. - Musculoskeletal: Cervical spine: Muscle bulk/ tone/ strength in the bilateral upper extremities normal Vertebral body tenderness to palpation over Spurling test positive Distraction test positive Facet loading test positive TTP Thoracic spine Muscle bulk / tone/ strength in the bilateral paraspinal muscles normal Vertebral body tender to palpation over Facet loading test positive TTP Lumbar spine: Motor bulk/ tone/ strength lower extremities , thigh and legs : 5/5 Deep tendon reflexes : Normal Knee Jerk. Normal Ankle Jerk . Vertebral body tenderness to palpation over L4 Moore Test positive over BL L4-L5 Lumbar Facet Loading Test positive Straight Leg Raise: positive at 30 degrees right side/ left side Gaenslen's Test positive Sacral spine : Severe tenderness over the Sacroiliac joint: right side / left side Range of motion: Flexion of the lumbar spine <60 degrees Range of motion: Extension of the lumbar spine <20 degrees Gaenslen's Test positive right side / left side Thomas test: positive right side / left side Thigh Thrust Test positive right side / left side Sacral Thrust Test positive right side / left side Assessment and plan: Chronic LBP secondary to lumbar DDD, spondylosis with facet arthropathy without myelopathy Recommendation of JESSICA L4-L5 #2. May need a series of injections for optimal pain relief. Risks, benefits of procedure discussed and pt verbalized understanding. Protocol for discontinuation/ continuation of medications george procedure discussed. Recommendation of non-narcotic medication management. Opiate/ narcotic agreement signed 07/01/23. Blood tox screen collected 08/26/23 NEG for medications prescribed. Blood tox screen 10/21/23 also NEG for medications prescribed. Violation of narcotics agreement and will discontinue medications. Pt acknowledged understanding. I have spent less than 30 minutes on patient care today. Dr Melgar was availab le by phone for the evaluation of this patient. The time was used to review the medical records including relevant urine studies and Prescription history (MAPs), review of the available imaging, evaluation and examination of the patient, coordination of care with the medical staff and if applicable referring physicians, as well as creation of the medical record - Pain Location Lower Back Pharmacological Interventions: Epidural PQRS Narrative: Narcotic Agreement Date Signed 07/01/23 Hx Alcohol Use (MH) No Home Medications: Ambulatory Orders methocarbamoL 750 mg PO QID 08/03/22 Gabapentin 800 mg PO QID 12/24/22 Insulin Lispro [humaLOG Kwikpen] See Protocol SQ TID 02/19/23 Rivaroxaban [Xarelto] 20 mg PO HS 02/19/23 Dulaglutide [Trulicity] 1.5 mg SQ TH 07/11/23 Insulin Glargine,Hum.rec.anlog [Lantus Solostar Pen] 20 units SQ HS 07/11/23 Omeprazole 40 mg PO BID 07/11/23 oxyCODONE-APAP 10-325MG [Percocet 10-325 mg] 1 tab PO Q8HR PRN 30 Days #90 tab 10/21/23 oxyCODONE-APAP 10-325MG [Percocet 10-325 mg] 1 tab PO TID PRN 30 Days #90 tab 10/21/23 Controlled Substance Measures - Controlled Substance Measures Is patient prescribed a controlled substance at discharge?: No
== END ==
LOC: PNWHC3 12:04
PROVIDERS: ATTEND Specialist
DX: M51.36 Other intervertebral disc degeneration, lumbar region (principal); M47.816 Spondylosis without myelopathy or radiculopathy, lumbar region
CPT/HCPCS: 99211

== ENCOUNTER 2024-01-09 07:49 | Day surgery (SDC) | payer OTHER ==
[2024-01-08 11:21] VITALS: BMI 275.0
[2024-01-09 08:17] VITALS: TEMP 97.7
[2024-01-09 08:29] LABS: Glucose,Whole Blood 214 mg/dL (70-110)
[2024-01-09] MEDS: INSULIN ASPART (NovoLOG) 100 UNIT/ML VIAL SQ STA (08:47)
[2024-01-09] MEDS ORDERED: methylPREDNISolone ACETATE 80 MG/ML 1 ML VIAL ONE (09:58)
[2024-01-09] MEDS ORDERED: IOPAMIDOL M300 15ML VIAL ONE (09:58)
[2024-01-09] MEDS ORDERED: ROPIVACAINE 5MG/ML 20ML VIAL ONE (09:58)
[2024-01-09 10:21] LABS: Glucose,Whole Blood 196 mg/dL (70-110)
--- NOTE | 2024-01-09 10:24 | P.PCN ---
Description of Procedure: PREOPERATIVE DIAGNOSIS: 1- Lumbar Degenerative Disc Diseases 2-Lumbar spondylosis with Facet arthropathy without myelopathy. 3-lumbar spinal stenosis POSTOPERATIVE DIAGNOSIS: 1-lumbar degenerative disc disease. 2-lumbar spondylosis with facet arthropathy without myelopathy. 3-lumbar spinal stenosis. PROCEDURE Injection of radio contrast material into L4-5 interspace, interpretation of epidurogram, injection of steroid at L4- 5 epidural space under fluoroscopic guidance. ANESTHESIA: Lidocaine 1% subcutaneously. In OR continuous pulse ox, EKG, blood pressure and verbal communication was maintained with the patient. EBL: Minimal PROCEDURE INDICATION: Before the procedure were discussed with the patient detailed procedure, alternatives, complications including infection, bleeding, nerve damage, paralysis all of which could be permanent. Patient understands and all questions were answered. PROCEDURE DESCRIPTION : After getting consent, patient in OR in prone position. Back was prepped with chlorhexidine and draped in sterile fashion. After injecting 10 mL of 1% lidocaine subcutaneously, a 20-gauge Tuohy needle was introduced at L4 5 interspace with loss of resistance technique using a syringe filled with air. Negative CSF, negative blood, negative paresthesia. Needle position was confirmed with AP and lateral view of the fluoroscope. After repeat negative aspiration 2 mL of Omnipaque 200 water soluble contrast was injected. Contrast was noted in the epidural space. No contrast was noted into intrathecal or intravascular space. After repeat negative aspiration 6 mL solution was injected intermittently which consists of 5 mL of preservative-free normal saline mixed with 1 mL of 80 mg Depo-Medrol. Needle was withdrawn intact. Skin was cleansed and Band-Aids was applied. DISPOSITION / PLANS: The patient tolerated the procedure well. No complication. The patient was placed in a supine position and transferred to the recovery area in a stable condition for observation. There was no evidence of lower extremity motor or sensory deficit after the procedure. Patient was discharged from the recovery room after meeting discharge criteria. Home discharge instructions were given to the patient by the staff. The patient was reexamined prior to discharge. The patient will schedule a follow up in the clinic in 2-4 weeks.
[2024-01-09 10:33] VITALS: BP 170/96; PULSE 89; RESP 18
--- NOTE | 2024-01-09 13:40 | FL ---
Fluoroscopy INDICATION: Pain FINDINGS: Fluoroscopy time: 9.8 seconds. Total dose area product (DAP) in uGy*m?, mGy*cm? (or similar): 0.16160 Images obtained: 2. IMPRESSION: 1. Documentation of fluoroscopy.
== END 2024-01-09 10:33 | disposition home or self-care (01) ==
LOC: ORPAIN 07:49
PROVIDERS: ATTEND Pain Medicine Interventional Pain Medicine
DX: M47.816 Spondylosis without myelopathy or radiculopathy, lumbar region (principal); M48.061 Spinal stenosis, lumbar region without neurogenic claudication; M51.36 Other intervertebral disc degeneration, lumbar region; Z79.01 Long term (current) use of anticoagulants; Z79.1 Long term (current) use of non-steroidal anti-inflammatories (NSAID)
CPT/HCPCS: 84703; 62323; Q9967; J2795; J1010

== ENCOUNTER 2024-03-31 08:00 | Inpatient (IN) | payer OTHER ==
[~2024-03-31 08:00] MED LIST changes: -LACTATED RINGERS 1,000 ML IV SCH; +MIDAZOLAM 2 MG/2 ML VIAL IV PRN
[2024-03-31 08:55] LABS: Glucose,Whole Blood 309 mg/dL (70-110)
[2024-03-31 09:03] LABS: Basophils # (A) 0.1 k/uL (0-0.2); Basophils % (A) 1 %; Eosinophils # (A) 0.4 k/uL (0-0.7); Eosinophils % (A) 2 %; HCT 47.6 % (34.0-46.0); Lymphocytes # (A) 4.6 k/uL (1.0-4.8); Lymphocytes % (A) 26 %; MCH 30.5 pg (25.0-35.0); MCHC 33.5 g/dL (31.0-37.0); MCV 91.1 fL (80.0-100.0); Mean Platelet Volume 8.3; Monocytes # (A) 0.6 k/uL (0-1.0); Monocytes % (A) 3 %; Neutrophils # (A) 11.9 k/uL (1.3-7.7); Neutrophils % (A) 67 %; Platelet Count 359 k/uL (150-450); RBC 5.23 m/uL (3.80-5.40); RDW 14.4 % (11.5-15.5); WBC 17.8 k/uL (3.8-10.6)
[2024-03-31] MEDS: ACETAMINOPHEN TAB 500 MG TAB PO PRN (09:03)
--- NOTE | 2024-03-31 09:03 | P.GSHP ---
History of Present Illness H&P Date: 03/31/24 Chief Complaint: Right upper quadrant pain Is a 38-year-old female who is complaining of GERD and epigastric pain. Her recent imaging study shows evidence of cholecystitis. Patient presents today for laparoscopic cholecystectomy. Past Medical History Past Medical History: Diabetes Mellitus, Deep Vein Thrombosis (DVT), GERD/Reflux, Skin Disorder Additional Past Medical History / Comment(s): Hx Covid June 2022. Type II IDDM. Eczema. Bilateral AKA. First leg amputed Jun 2022. Second leg amputated in December 2022. History of Any Multi-Drug Resistant Organisms: MRSA Date of last positivie culture/infection: 02/28/23 MDRO Source:: Left Leg Past Surgical History: Tonsillectomy, Tubal Ligation Additional Past Surgical History / Comment(s): WENT IN FOR BACK SX WOKE UP WITH RT AKA R/T POOR CIRCULATION-NO BACK SX, LATER HAD LT AKA, PAIN CLINIC PROCEDURE. Past Anesthesia/Blood Transfusion Reactions: No Reported Reaction Smoking Status: Former smoker - Past Family History Mother Family Medical History: No Reported History Father Family Medical History: No Reported History Additional Family Medical History / Comment(s): Heart disease, Parkinson's disease. Medications and Allergies Home Medications Medication Instructions Recorded Confirmed Type methocarbamoL 750 mg PO QID 08/03/22 03/31/24 History Gabapentin 800 mg PO QID 12/24/22 03/31/24 History Insulin Lispro [humaLOG Kwikpen] See Protocol SQ TID 02/19/23 03/31/24 History Rivaroxaban [Xarelto] 20 mg PO HS 02/19/23 03/31/24 History Dulaglutide [Trulicity] 1.5 mg SQ MILLER 07/11/23 03/31/24 History Insulin Glargine,Hum.rec.anlog 50 units SQ HS 07/11/23 03/31/24 History [Lantus Solostar Pen] Omeprazole 40 mg PO BID 07/11/23 03/31/24 History Etanercept [Enbrel] 03/31/24 History Allergies Allergy/AdvReac Type Severity Reaction Status Date / Time No Known Allergies Allergy Verified 03/31/24 08:40 Surgical - Exam Vital Signs BP 215/106 03/31/24 08:45 - General well developed, no distress - Eyes PERRL - ENT normal pinna - Neck no masses - Respiratory normal expansion - Cardiovascular Rhythm: regular - Abdomen Obese mild right upper quadrant pain Abdomen: soft Results - Labs Abnormal Lab Results - Last 24 Hours (Table) 03/31/24 Range/Units 08:52 POC Glucose (mg/dL) 309 H (70-110) mg/dL Assessment and Plan Assessment: Gerd quadrant pain Chronic cholecystitis Patient was scheduled for laparoscopic cholecystectomy.
[2024-03-31] MEDS: DEXAMETHASONE SOD PHOSPHATE 4 MG/ML 1 ML VIAL IV ONE (09:04)
[2024-03-31] MEDS: ONDANSETRON 4 MG/2 ML VIAL IVP ONE (09:04)
[2024-03-31] MEDS: LACTATED RINGERS 1,000 ML IV SCH ×2 (09:04→13:28)
[2024-03-31] MEDS: INSULIN ASPART (NovoLOG) 100 UNIT/ML VIAL SQ ONE ×3 (09:06→13:27)
[2024-03-31] MEDS: hydrALAZINE HCL 20 MG/ML 1 ML VIAL IVP STA ×2 (09:09→22:25)
[2024-03-31] MEDS: HEPARIN SODIUM,PORCINE 5,000 UNIT/ML 1 ML VIAL SQ PRN (09:10)
[2024-03-31] MEDS: IV FLUID CONTINUATION 1,000 ML IV ONE (09:19)
[2024-03-31 09:25] LABS: HCG,Qualitative Serum Not Detected
[2024-03-31 09:32] LABS: ALT 17 U/L (4-34); AST 22 U/L (14-36); African American GFR (CKD) >90 (>60 ml/min/1.73 sqM); Albumin 3.9 g/dL (3.5-5.0); Alkaline Phosphatase 129 U/L (38-126); Anion Gap 10 mmol/L; Blood Urea Nitrogen 25 mg/dL (7-17); Calcium 9.8 mg/dL (8.4-10.2); Carbon Dioxide 22 mmol/L (22-30); Chloride 103 mmol/L (98-107); Glucose 299 mg/dL (74-99); Non-African American GFR(CKD) >90 (>60 ml/min/1.73 sqM); Potassium 4.3 mmol/L (3.5-5.1); Sodium 135 mmol/L (137-145); Total Bilirubin 0.6 mg/dL (0.2-1.3)
[2024-03-31 09:36] LABS: Glucose,Whole Blood 285 mg/dL (70-110)
[2024-03-31] MEDS ORDERED: NEOSTIGMINE 1 MG/ML 10 ML VIAL ONE (09:38)
[2024-03-31] MEDS ORDERED: SUCCINYLCHOLINE CHLORIDE 200 MG/10 ML VIAL IV ONE (09:38)
[2024-03-31] MEDS ORDERED: LIDOCAINE 1% INJ 10MG/ML (20 ML MDV) ONE (09:38)
[2024-03-31] MEDS ORDERED: ETOMIDATE 2 MG/ML 10 ML VIAL ONE (09:38)
[2024-03-31] MEDS ORDERED: KETOROLAC 15 MG/ML 1 ML VIAL ONE (09:38)
[2024-03-31] MEDS ORDERED: ROCURONIUM 10 MG/ML (5 ML VIAL) IV ONE (09:38)
[2024-03-31] MEDS ORDERED: HYDROmorphone (PF) 1 MG/ML ONE (09:38)
[2024-03-31] MEDS ORDERED: LABETALOL 5 MG/ML VIAL MDV ONE (09:38)
[2024-03-31] MEDS ORDERED: MIDAZOLAM 2 MG/2 ML VIAL ONE (09:38)
[2024-03-31] MEDS ORDERED: fentaNYL (PF) 50 MCG/ML 2 ML AMP ONE (09:38)
[2024-03-31] MEDS ORDERED: GLYCOPYRROLATE 0.2 MG/ML 2 ML VIAL ONE (09:38)
[2024-03-31] MEDS ORDERED: SUGAMMADEX SODIUM 200 MG/2 ML SDV IV ONE (09:38)
[2024-03-31] MEDS: BUPIVACAINE (PF) 0.25% 30 ML VIAL SQ ONE ×2 (10:02→10:04)
[2024-03-31] MEDS: LACTATED RINGERS 1,000 ML IV ONE (10:46)
[2024-03-31 11:06] LABS: Glucose,Whole Blood 319 mg/dL (70-110)
[2024-03-31] MEDS ORDERED: NALOXONE 0.4 MG/ML 1 ML VIAL IV PRN (11:16)
--- NOTE | 2024-03-31 11:16 | P.OP ---
Date of Procedure: 03/31/24 Preoperative Diagnosis: Cholecystitis Postoperative Diagnosis: Adhesions Cholecystitis Procedure(s) Performed: Diagnostic laparoscopy Open cholecystectomy Anesthesia: WILLIAM Surgeon: Gregg Rick Estimated Blood Loss (ml): 50 Pathology: other (Gallbladder) Condition: stable Disposition: PACU Description of Procedure: The patient was placed on the operative table in the supine position. She received general trach tube anesthesia. Her abdomen is prepped and draped you sterile fashion. Patient had a large midline laparotomy scar running from the sternum to the pubis. Due to the scar a 5 mm optical trocars placed in the left upper quadrant of the abdomen under direct vision. The abdomen was insufflated. After adequate insufflation the laparoscope placed back in [place] cavity. There were significant intra-abdominal adhesions. Due to adhesions decided to perform an open cholecystectomy. The term was withdrawn. A right subcostal incision was made. These electrocautery the subcutaneous tissues were divided. The abdominal wall was divided electrocautery. The Bookwalter tract placed the wound. The gallbladder was visualized. The gallbladder was taken in a dome down fashion. Use electrocautery the gallbladder was taken off of the liver bed. Using a pusher the cystic artery and cystic duct were identified. Cystic artery was then divided with the robotic scissors. Cystic duct was then ligated with a right angle clamp. In the cholecystectomy was performed. The cystic duct stump was then ligated with a PDS Endoloop and then a 0 silk tie. The eye was inspected for bleeding. Usual bleeding seen. The eye was irrigated. And then the fascia was closed with looped #1 PDS suture. 2 suture used to close the abdominal wall. The skin was a closed with dick. Sterile dressing applied. Patient tolerated well. She was sent to recovery in stable condition.
[2024-03-31] MEDS: HYDROmorphone 0.5 MG/0.5 ML SYRINGE IVP PRN (11:33)
[2024-03-31] MEDS: SCOPOLAMINE 1 MG/72 HR PATCH TRANSDERM ONE (13:27)
[2024-03-31] MEDS: HYDROmorphone 1 MG/ML 1 ML SYRINGE IVP PRN (15:42)
[2024-03-31 16:38] LABS: Glucose,Whole Blood 242 mg/dL (70-110)
[2024-03-31] MEDS: ONDANSETRON 4 MG/2 ML VIAL IVP PRN (19:43)
[2024-03-31] MEDS: ACETAMINOPHEN TAB 325 MG TAB PO PRN (19:45)
[2024-03-31 21:11] LABS: Glucose,Whole Blood 281 mg/dL (70-110)
[2024-03-31] MEDS: HYDROcodone/APAP 5-325MG 1 EACH TAB PO PRN (21:43)
[2024-03-31] MEDS ORDERED: DEXTROSE 50% SYRINGE 50 ML IVP PRN ×2 (22:01)
[2024-03-31] MEDS: INSULIN ASPART (NovoLOG) 100 UNIT/ML VIAL SQ SCH (22:25)
[2024-03-31] MEDS: INSULIN DETEMIR (LEVEMIR) 100 UNIT/ML SYR SQ SCH (22:26)
[2024-03-31] MEDS: methocarbamoL 750 MG TAB PO SCH (22:32)
[2024-03-31] MEDS: GABAPENTIN 400 MG CAP PO SCH (22:32)
--- NOTE | 2024-04-01 05:14 | CONS ---
CONSULTATION HISTORY OF PRESENT ILLNESS: A 38-year-old white female, status post gallbladder surgery. She is unable to sit up due to severe pain in her abdomen after surgery. We may have to give her stronger pain control overnight, see how she does. Start her on her home insulin, breathing treatments, CPAP at night to see how she does. PHYSICAL EXAMINATION: CARDIOVASCULAR: S1, S2. LUNGS: Transmitted upper sounds. GI: Soft. HEMATOLOGY: Negative Homans. She had below-knee amputations bilaterally. Status post cholecystectomy, lumbar disk disease, PAD significant with bilateral amputations, diabetes mellitus, osteopenia. Prognosis guarded. Continue current treatments. Home medications including breathing treatments, pain control, CPAP at night. Prognosis guarded. MMODL / IJN: [id number] /
[2024-04-01] MEDS: ZINC OXIDE PASTE (Z-GUARD) 1 APPLIC TOPICAL PRN (05:27)
[2024-04-01 05:56] LABS: Glucose,Whole Blood 257 mg/dL (70-110)
[2024-04-01] MEDS: IPRATROPIUM-ALBUTEROL 3 ML NEB INHALATION SCH (08:08)
[2024-04-01] MEDS ORDERED: ENOXAPARIN 40 MG/0.4 ML SYRINGE SQ SCH (09:00)
[2024-04-01] MEDS: PANTOPRAZOLE 40 MG TABLET PO SCH (10:04)
[2024-04-01] MEDS: HYDROmorphone 1 MG/ML 1 ML SYRINGE IVP PRN (11:05)
[2024-04-01 11:51] LABS: Glucose,Whole Blood 190 mg/dL (70-110)
[2024-04-01] MEDS: FLUCONAZOLE 100 MG TAB PO ONE (11:52)
[2024-04-01] MEDS: diphenhydrAMINE 50 MG/ML 1 ML VIAL IVP STA (11:53)
[2024-04-01] MEDS ORDERED: MORPHINE SULFATE 4 MG/ML SYRINGE IVP PRN (12:11)
--- NOTE | 2024-04-01 12:23 | P.PN ---
Subjective Progress Note Date: 04/01/24 CHIEF COMPLAINT: Cholecystitis HISTORY OF PRESENT ILLNESS: Patient postop day# 1 status post diagnostic l aparoscopy and open cholecystectomy. Patient complaining of abdominal pain. She had nausea and vomiting last night. Denies any flatus. She is complaining of vaginal yeast infection. She is complaining of itching on her legs stumps. Afebrile. Mildly tachycardic. Blood sugar 190 PHYSICAL EXAM: VITAL SIGNS: Reviewed. GENERAL: Well-developed in no acute distress. ABDOMEN: Soft. Nondistended. Last NEUROLOGIC: Alert and oriented. Cranial nerves II through XII grossly intact. ASSESSMENT: 1. Cholecystitis and adhesions status post open cholecystectomy PLAN: -Downgrade diet to clear liquids due to patient having nausea and vomiting last night -Morphine and Toradol added for pain control -Diflucan added for yeast infection -Encourage patient to use incentive spirometer abdominal binder ordered -Abdominal binder ordered -Benadryl IV ordered for itching -GI prophylaxis Protonix and DVT prophylaxis Xarelto Physician Circulation Director note has been reviewed by physician. Signing provider agrees with the documented findings, assessment, and plan of care. Objective - Vital Signs Vital signs: Vital Signs Temp 99 F 04/01/24 07:12 Pulse 106 H 04/01/24 11:33 Resp 19 04/01/24 07:12 BP 183/92 04/01/24 07:12 Pulse Ox 91 L 04/01/24 07:12 FiO2 95 04/01/24 00:19 Intake & Output 03/31/24 04/01/24 04/01/24 18:59 06:59 18:59 Intake Total 1450 1500 Output Total 50 Balance 1400 1500 Weight 102.06 kg Intake: IV 1450 Intake, IV Titration 1500 Amount Lactated Ringers 1,000 ml 1500 @ 125 mls/hr IV .Q8H [facility] Rx#:[id number] Output: Urine 0 Estimated Blood Loss 50 Other: Voiding Method External Catheter # Voids 4 - Labs CBC & Chem 7: 03/31/24 08:50 03/31/24 08:50 Labs: Abnormal Lab Results - Last 24 Hours (Table) 03/31/24 03/31/24 04/01/24 Range/Units 16:36 20:55 05:55 POC Glucose (mg/dL) 242 H 281 H 257 H (70-110) mg/dL 04/01/24 Range/Units 11:49 POC Glucose (mg/dL) 190 H (70-110) mg/dL
[2024-04-01] MEDS: HEPARIN SODIUM,PORCINE 5,000 UNIT/ML 1 ML VIAL SQ SCH (13:47)
[2024-04-01 16:42] LABS: Glucose,Whole Blood 287 mg/dL (70-110)
[2024-04-01 20:36] LABS: Glucose,Whole Blood 190 mg/dL (70-110)
[2024-04-01] MEDS ORDERED: RIVAROXABAN 20 MG TAB PO SCH (21:00)
[2024-04-02] MEDS: diphenhydrAMINE 50 MG/ML 1 ML VIAL IVP PRN (00:31)
[2024-04-02 03:20] LABS: Basophils % (A) 0 %; Eosinophils # (A) 0.4 k/uL (0-0.7); Eosinophils % (A) 2 %; HGB 13.2 gm/dL (11.4-16.0); Lymphocytes # (A) 2.5 k/uL (1.0-4.8); Lymphocytes % (A) 16 %; MCH 30.4 pg (25.0-35.0); MCV 91.9 fL (80.0-100.0); Mean Platelet Volume 9.1; Monocytes # (A) 0.7 k/uL (0-1.0); Monocytes % (A) 4 %; Neutrophils # (A) 12.2 k/uL (1.3-7.7); Neutrophils % (A) 76 %; Platelet Count 298 k/uL (150-450); RBC 4.35 m/uL (3.80-5.40); RDW 14.4 % (11.5-15.5)
[2024-04-02 03:38] LABS: African American GFR (CKD) >90 (>60 ml/min/1.73 sqM); Anion Gap 2 mmol/L; Blood Urea Nitrogen 13 mg/dL (7-17); Calcium 8.8 mg/dL (8.4-10.2); Carbon Dioxide 27 mmol/L (22-30); Chloride 104 mmol/L (98-107); Glucose 168 mg/dL (74-99); Non-African American GFR(CKD) >90 (>60 ml/min/1.73 sqM); Potassium 3.9 mmol/L (3.5-5.1); Sodium 133 mmol/L (137-145)
--- NOTE | 2024-04-02 03:50 | PN ---
PROGRESS NOTE SUBJECTIVE: Day #2 status post cholecystectomy. She had severe pain in the back. Gallbladder has been removed. She is on her home medications. She is in lot of pain. OBJECTIVE: VITAL SIGNS: Pulse is 80s to 90s, saturating 90s on 3 L. CARDIOVASCULAR: S1, S2. LUNGS: Scattered wheeze. MUSCULOSKELETAL: Tenderness to palpation of paralumbar spine. Sugars mid 200s. Postop care per Dr. Rick on pain control. Continue home medicines and sent for CPAP for breathing. Prognosis guarded. Monitor the patient closely. MMODL / IJN: [id number] /
[2024-04-02 05:45] LABS: Glucose,Whole Blood 124 mg/dL (70-110)
--- NOTE | 2024-04-02 11:04 | P.PN ---
Subjective Progress Note Date: 04/02/24 CHIEF COMPLAINT: Cholecystitis HISTORY OF PRESENT ILLNESS: Patient postop day# 2 status post diagnostic l aparoscopy and open cholecystectomy. Patient reports her pain is better controlled today. She did have pain with moving to the chair. Denies any nausea or vomiting. Afebrile. Tachycardia resolved. Patient's itching has improved. WBC 17.8-16 hgb 13 hemoglobin A1c 11.9 PHYSICAL EXAM: VITAL SIGNS: Reviewed. GENERAL: Well-developed in no acute distress. ABDOMEN: Soft. Nondistended. Incision site clean dry and intact NEUROLOGIC: Alert and oriented. Cranial nerves II through XII grossly intact. ASSESSMENT: 1. Cholecystitis and adhesions status post open cholecystectomy PLAN: -Add IV Zosyn for leukocytosis. Repeat CBC in a.m. -Advance diet to full liquids and then as tolerated -Discontinue IV fluids -Continue pain management -Encourage patient to increase activity level -Encourage patient to use incentive spirometer -Okay to resume Xarelto -GI prophylaxis Protonix Physician Film Loader note has been reviewed by physician. Signing provider agrees with the documented findings, assessment, and plan of care. Objective - Vital Signs Vital signs: Vital Signs Temp 98.4 F 04/02/24 06:58 Pulse 86 04/02/24 08:56 Resp 18 04/02/24 06:58 BP 157/89 04/02/24 06:58 Pulse Ox 90 L 04/02/24 06:58 FiO2 95 04/01/24 00:19 Intake & Output 04/01/24 04/02/24 04/02/24 18:59 06:59 18:59 Output Total 100 400 Balance -100 -400 Output: Urine 100 400 Other: Voiding Method External Catheter External Catheter # Voids 2 - Labs CBC & Chem 7: 04/02/24 02:33 04/02/24 02:33 Labs: Abnormal Lab Results - Last 24 Hours (Table) 03/31/24 04/01/24 04/01/24 Range/Units 08:50 11:49 16:41 WBC (3.8-10.6) k/uL Neutrophils # (1.3-7.7) k/uL Sodium (137-145) mmol/L Glucose (74-99) mg/dL POC Glucose (mg/dL) 190 H 287 H (70-110) mg/dL Hemoglobin A1c 11.9 H (<=6.0) % 04/01/24 04/02/24 04/02/24 Range/Units 20:34 02:33 02:33 WBC 16.0 H (3.8-10.6) k/uL Neutrophils # 12.2 H (1.3-7.7) k/uL Sodium 133 L (137-145) mmol/L Glucose 168 H (74-99) mg/dL POC Glucose (mg/dL) 190 H (70-110) mg/dL Hemoglobin A1c (<=6.0) % 04/02/24 Range/Units 05:41 WBC (3.8-10.6) k/uL Neutrophils # (1.3-7.7) k/uL Sodium (137-145) mmol/L Glucose (74-99) mg/dL POC Glucose (mg/dL) 124 H (70-110) mg/dL Hemoglobin A1c (<=6.0) %
[2024-04-02] MEDS: PIPERACILLIN-TAZOBACTAM 3.375 GM in SODIUM CHLORIDE 0.9% 100 ML IVPB SCH (11:42)
[2024-04-02 11:59] VITALS: BMI 122.0
[2024-04-02] MEDS: RIVAROXABAN 20 MG TAB PO SCH (18:42)
[2024-04-02 21:37] LABS: Glucose,Whole Blood 279 mg/dL (70-110)
[2024-04-02 21:37] LABS: Glucose,Whole Blood 174 mg/dL (70-110)
[2024-04-02 21:37] LABS: Glucose,Whole Blood 200 mg/dL (70-110)
--- NOTE | 2024-04-03 03:32 | PN ---
PROGRESS NOTE SUBJECTIVE: Kenia Lee is still in severe pain in her belly. She had open gallbladder surgery with long incision in her abdomen. She complains of severe pain, although she is up to the chair today. She is saturating 91% on 2 L. She wears BiPAP at night. She continues with home BiPAP here. Sugars have been running 100s while in the hospital, which is good. White count is a little high at 16,000. OBJECTIVE: VITAL SIGNS: Blood pressure 163/81, pulse 116, temp 99.1, respiratory rate 19. CARDIOVASCULAR: S1, S2. HEMATOLOGY: Negative Homans. GI: Diffuse tenderness. PSYCH: Fair mood and affect. Continues on her breathing treatments. LUNGS: Transmitted upper sounds. CARDIOVASCULAR: S1, S2. HEMATOLOGY: Negative Homans. PSYCH: Fair mood and affect. IMPRESSION: Continue on Zosyn prophylactically. Elevated white count. Check her labs in the morning. She is back on her blood thinners. History of peripheral artery disease, asthma, chronic obstructive pulmonary disease. Continue current treatments. Continue blood thinners. Prognosis guarded. MMODL / IJN: [id number] /
[2024-04-03 06:09] LABS: Glucose,Whole Blood 148 mg/dL (70-110)
[2024-04-03 07:34] LABS: ALT 22 U/L (4-34); AST 35 U/L (14-36); African American GFR (CKD) >90 (>60 ml/min/1.73 sqM); Albumin 2.8 g/dL (3.5-5.0); Alkaline Phosphatase 113 U/L (38-126); Anion Gap 4 mmol/L; Blood Urea Nitrogen 9 mg/dL (7-17); Calcium 8.7 mg/dL (8.4-10.2); Carbon Dioxide 30 mmol/L (22-30); Chloride 101 mmol/L (98-107); Globulin 2.7 g/dL; Glucose 178 mg/dL (74-99); Non-African American GFR(CKD) >90 (>60 ml/min/1.73 sqM); Potassium 3.9 mmol/L (3.5-5.1); Sodium 135 mmol/L (137-145); Total Bilirubin 0.6 mg/dL (0.2-1.3); Total Protein 5.5 g/dL (6.3-8.2)
[2024-04-03 07:39] LABS: Basophils % (A) 0 %; Eosinophils # (A) 0.5 k/uL (0-0.7); Eosinophils % (A) 4 %; HCT 38.5 % (34.0-46.0); HGB 12.2 gm/dL (11.4-16.0); Hypochromasia Slight; Lymphocytes % (A) 17 %; MCHC 31.6 g/dL (31.0-37.0); MCV 94.9 fL (80.0-100.0); Mean Platelet Volume 9.6; Monocytes # (A) 0.7 k/uL (0-1.0); Monocytes % (A) 6 %; Neutrophils # (A) 8.5 k/uL (1.3-7.7); Neutrophils % (A) 72 %; Platelet Count 321 k/uL (150-450); RBC 4.06 m/uL (3.80-5.40); RDW 13.8 % (11.5-15.5); WBC 11.8 k/uL (3.8-10.6)
[2024-04-03 08:08] VITALS: BP 148/78; RESP 17; TEMP 98
--- NOTE | 2024-04-03 10:54 | P.DS ---
Providers Date of admission: 03/31/24 11:16 Expected date of discharge: 04/03/24 Attending physician: Gregg Rick Consults: 03/31/24 11:16 Consult Physician Routine Consulting Provider: Tio Peters Consult Reason/Comments: Medical management Do you want consulting provider notified?: Yes Primary care physician: Tio Peters [facility] Course: Discharge diagnosis 1. Cholecystitis and adhesions status post open cholecystectomy 2. Diabetes mellitus Hospital course This is a 38-year-old female who had imaging completed showing evidence of cholecystitis. She is status post open cholecystectomy. Patient tolerated surgery well. Her pain is controlled. She is tolerating diet. She is afebrile. She is stable for discharge. Please refer to chart for any further details. Physician Instructional Technology Coach note has been reviewed by physician. Signing provider agrees with the documented findings, assessment, and plan of care. Patient Condition at Discharge: Stable Plan - Discharge Summary Discharge Rx Participant: Yes New Discharge Prescriptions: New Levofloxacin [Levaquin] 500 mg PO DAILY 10 Days #10 tab Ibuprofen [Motrin] 600 mg PO Q8HR PRN #15 tab PRN Reason: Pain HYDROcodone/APAP 5-325MG [[place] 5-325] 1 tab PO Q6HR PRN 3 Days #12 tab PRN Reason: Pain Continue Gabapentin 800 mg PO QID Insulin Lispro [humaLOG Kwikpen] See Protocol SQ TID Rivaroxaban [Xarelto] 20 mg PO HS Omeprazole 40 mg PO BID Etanercept [Enbrel] methocarbamoL 750 mg PO QID Insulin Glargine,Hum.rec.anlog [Lantus Solostar Pen] 50 units SQ HS Dulaglutide [Trulicity] 1.5 mg SQ MILLER Discharge Medication List methocarbamoL 750 mg PO QID 08/03/22 [History] Gabapentin 800 mg PO QID 12/24/22 [History] Insulin Lispro [humaLOG Kwikpen] See Protocol SQ TID 02/19/23 [History] Rivaroxaban [Xarelto] 20 mg PO HS 02/19/23 [History] Dulaglutide [Trulicity] 1.5 mg SQ MILLER 07/11/23 [History] Insulin Glargine,Hum.rec.anlog [Lantus Solostar Pen] 50 units SQ HS 07/11/23 [History] Omeprazole 40 mg PO BID 07/11/23 [History] Etanercept [Enbrel] 03/31/24 [History] HYDROcodone/APAP 5-325MG [[place] 5-325] 1 tab PO Q6HR PRN 3 Days #12 tab 04/03/24 [Rx] Ibuprofen [Motrin] 600 mg PO Q8HR PRN #15 tab 04/03/24 [Rx] Levofloxacin [Levaquin] 500 mg PO DAILY 10 Days #10 tab 04/03/24 [Rx] Follow up Appointment(s)/Referral(s): [facility], [NON-STAFF] - As Needed ([facility] will call you to schedule your in home nursing, physical therapy, occupational therapy, and home health aide visits. ) Gregg Rick MD [STAFF PHYSICIAN] - 04/07/24 9:10 am Activity/Diet/Wound Care/Special Instructions: No driving while taking [place] No lifting over 10 pounds Shower daily. No soaking or tub baths for 2 weeks Very light activity until you are reevaluated at your follow up appointment with your surgeon Discharge Disposition: HOME SELF-CARE
[2024-04-03] MEDS: KETOROLAC 15 MG/ML 1 ML VIAL IVP SCH (11:36)
[2024-04-03 11:38] LABS: Glucose,Whole Blood 279 mg/dL (70-110)
[2024-04-03 12:50] VITALS: PULSE 94
== END 2024-04-03 14:57 | disposition home or self-care (01) | DRG 263 ==
LOC: OR 08:00 → 4SSUR 11:16
PROVIDERS: ADMIT Surgery; ATTEND Surgery
PROC: 0FJ44ZZ Inspection of Gallbladder, Percutaneous Endoscopic Approach (ICD-10-PCS; principal; 2024-03-31 09:15)
PROC: 0FT40ZZ Resection of Gallbladder, Open Approach (ICD-10-PCS; principal; 2024-03-31 09:15)
DX: K81.1 Chronic cholecystitis (principal); K82.8 Other specified diseases of gallbladder; E11.51 Type 2 diabetes mellitus with diabetic peripheral angiopathy without gangrene; B37.31 Acute candidiasis of vulva and vagina; J44.89 Other specified chronic obstructive pulmonary disease; K21.9 Gastro-esophageal reflux disease without esophagitis; M85.80 Other specified disorders of bone density and structure, unspecified site; L29.9 Pruritus, unspecified; Z79.01 Long term (current) use of anticoagulants; Z79.4 Long term (current) use of insulin; Z86.16 Personal history of COVID-19; Z87.891 Personal history of nicotine dependence; Z89.611 Acquired absence of right leg above knee; Z89.612 Acquired absence of left leg above knee; Z79.85 Long-term (current) use of injectable non-insulin antidiabetic drugs; Z79.899 Other long term (current) drug therapy; Z28.21 Immunization not carried out because of patient refusal; Z86.14 Personal history of Methicillin resistant Staphylococcus aureus infection; Z86.718 Personal history of other venous thrombosis and embolism
CPT/HCPCS: 80048; 80053; 83036; 84703; 85025; 88304; 94640; 94760